=== PATIENT | male | born 1970 | race Caucasian/White ===

== ENCOUNTER 2016-11-26 15:00 | Inpatient (IN) | payer BC ==
[~2016-11-26] VITALS: Ht 177.8 cm; Wt 94.3 kg
[2016-11-26 17:05] VITALS: BP 121/79
--- OUTSIDE RECORDS SUMMARY | 2016-11-26 17:17 | XMS REPORT | Continuity of Care Document ---
Author Author [facility] Organization [facility] Address Unknown Phone Unavailable Care Team Providers Care Produce Sorter Name Role Phone JAILYN (GWENDOLYN), LIZZY Henley PCP Insurance Providers Payer Name Policy Number Subscriber Name Relationship [facility] [id number] Yennifer Bradshaw 01 Problems No known problems or medical conditions. Medications No known medications. Social History Social History Problem Response Recorded Date/Time Recent Foreign Travel No 02/21/2015 9:52am Hospital Discharge Instructions No hospital discharge instructions. Plan of Care No plan of care. Functional Status No functional status results. Allergies, Adverse Reactions, Alerts No known allergies. Immunizations No immunization records. Vital Signs No known vital signs results. Results No known relevant diagnostic tests, laboratory data and/or discharge summary. Procedures No known history of procedures. Encounters Encounter Location Date/Time Discharged Recurring [facility] 03/24/15 11:15am
[2016-11-26] MEDS ORDERED: BACLOFEN 10 MG (LIORESAL) TAB PO PRN (17:30)
[2016-11-26] MEDS ORDERED: inSUlin ASPART (NovoLOG) 1 UNIT/0.01 ML (CHARGE PER UNIT) SC SCH (18:15)
[2016-11-26] MEDS: doxAzosin 2 MG (CARDURA) TAB PO SCH (18:23)
[2016-11-26] MEDS: AMOXICILLIN 500 MG (POLYMOX) CAP PO SCH (18:23)
[2016-11-26] MEDS ORDERED: inSUlin ASPART (NovoLOG) 1 UNIT/0.01 ML (CHARGE PER UNIT) SC ONE (18:30)
[2016-11-26] MEDS: inSUlin DETERMIR 1 UNIT/0.01 ML (LEVEMIR) CHARGE PER UNIT SQ SCH (20:43)
[2016-11-26] MEDS: RIVAROXABAN 20 MG TABLET (XARELTO) PO SCH (20:43)
[2016-11-26] MEDS: CARVEDILOL 6.25 MG (COREG) TAB PO SCH (20:43)
[2016-11-27 05:17] VITALS: BP 111/78
[2016-11-27 05:52] LABS: BASOPHILS % (AUTO) 0 % (0-10); EOSINOPHILS # (AUTO) 0.2 10^3/uL (0.0-0.3); EOSINOPHILS % (AUTO) 4 % (0-10); LYMPHOCYTES # (AUTO) 2.2 X 10^3 (1.0-4.0); LYMPHOCYTES % (AUTO) 39 % (12-44); MEAN CORPUSCULAR HEMOGLOBIN 28 PG (25-34); MEAN CORPUSCULAR HGB CONC 33 G/DL (32-36); MEAN CORPUSCULAR VOLUME 84 FL (80-99); MEAN PLATELET VOLUME 10.5 FL (7.4-10.4); MONOCYTES # (AUTO) 0.6 X 10^3 (0.0-1.0); MONOCYTES % (AUTO) 10 % (0-12); NEUTROPHILS # (AUTO) 2.7 X 10^3 (1.8-7.8); NEUTROPHILS % (AUTO) 47 % (42-75); PLATELET COUNT 173 10^3/uL (130-400); RED BLOOD COUNT 4.98 10^6/uL (4.35-5.85); RED CELL DISTRIBUTION WIDTH 12.8 % (10.0-14.5); WHITE BLOOD COUNT 5.8 10^3/uL (4.3-11.0)
[2016-11-27] MEDS: AMOXICILLIN 500 MG (POLYMOX) CAP PO SCH ×2 (06:14→17:49)
[2016-11-27 06:17] LABS: ALANINE AMINOTRANSFERASE 43 U/L (0-55); ALBUMIN 3.5 G/DL (3.2-4.5); ANION GAP 10 MMOL/L (5-14); ASPARTATE AMINO TRANSFERASE 42 U/L (5-34); BILIRUBIN,TOTAL 0.4 MG/DL (0.1-1.0); BLOOD UREA NITROGEN 13 MG/DL (7-18); BUN/CREATININE RATIO 15; CARBON DIOXIDE 24 MMOL/L (21-32); CHLORIDE 105 MMOL/L (98-107); CREATININE SERUM 0.85 MG/DL (0.60-1.30); GFR ESTIMATED > 60; GLUCOSE 104 MG/DL (70-105); POTASSIUM 4.1 MMOL/L (3.6-5.0); SODIUM 139 MMOL/L (135-145); TOTAL PROTEIN 6.6 G/DL (6.4-8.2)
[2016-11-27] MEDS: ATORVASTATIN 40 MG (LIPITOR) TABLET PO SCH (07:16)
[2016-11-27] MEDS: MODAFINIL 100 MG TAB (PROVIGIL) NON-FORMULARY PO SCH (07:16)
[2016-11-27] MEDS: CARVEDILOL 6.25 MG (COREG) TAB PO SCH ×2 (08:37→20:12)
[2016-11-27] MEDS: VITAMIN D3 5,000 UNITS (CHOLECALCIFEROL ) CAPSULE PO SCH (08:37)
[2016-11-27] MEDS: ASPIRIN 325 MG (5 GR) TABLET PO SCH (08:38)
--- NOTE | 2016-11-27 08:40 | Consultation ---
History of Present Illness History of Present Illness Patient Consulted On(nikki/time) 11/27/16 08:34 Date of Admission History of Present Illness patient has weakness. Patient has multiple sclerosis for 25 years. Patient has a PEG tube which he uses for water. Patient has history of diabetes mellitus type II, hypertension, hyperlipidemia, obstructive sleep apnea, and ischemic stroke with residual right hemiplegia. Patient not using walker due to the previous stroke. Patient uses a cane. Patient at home wasn't toilet and try to get up and fell. Patient has a UTI but does have a catheter in Allergies and Home Medications Allergies Coded Allergies: Sulfa (Sulfonamide Antibiotics) (Verified Allergy, Unknown, 11/26/16) Past [id number]-[id number]-[id number] Hx Patient Social History Alcohol Use: Denies Use Recreational Drug Use: No Smoking Status: Former Smoker Recent Foreign Travel: No Contact w/Someone Who Travel: No Recent Infectious Disease Expo: No Recent Hopitalizations: Yes (WEAKNESS UTI MASTERS ) Physical Abuse Screen: No Sexual Abuse: No Immunizations Up To Date Date of Pneumonia Vaccine: Jul 23, 2016 Date of Influenza Vaccine: Aug 21, 2016 Seasonal Allergies Seasonal Allergies: No Surgeries Surgeries: Gallbladder Respiratory Respiratory Disorders: Sleep Apnea Genitourinary Genitourinary Disorders: Kidney Stones Gastrointestinal Gastrointestinal Disorders: Gall Bladder Disease Psychosocial Behavioral Health Disorders: Anxiety, Depression Family Medical History Family Medial History: Diabetes mellitus 19 FATHER FH: stroke 19 MOTHER, Onset:49 (BRAIN STEM STROKE) Hypertension 19 FATHER Review of Systems-General Constitutional: malaise weakness other (right sided stroke) EENTM: no symptoms reported Respiratory: no symptoms reported Cardiovascular: no symptoms reported Gastrointestinal: other (PEG tube for fluid to avoid dehydration) Genitourinary: other (has catheter in UTI) Musculoskeletal: other (foot drop on right, bases of both feet) Physical Exam-General Problems Physical Exam Vital Signs Vital Sign - Last 12Hours 11/26/16 17:05 Temp 97.8 Pulse 69 Resp 20 B/P 121/79 Pulse Ox 97 O2 Delivery Room Air Capillary Refill : General Appearance: WD/WN no apparent distress Eyes: Bilateral Eye Normal Inspection HEENT: normal ENT inspection Neck: full range of motion Respiratory: chest non-tender lungs clear normal breath sounds no respiratory distress no accessory muscle use Cardiovascular: regular rate, rhythm no murmur Gastrointestinal: non tender soft other (PEG tube) Assessment/Plan Assessment/Plan Admission Diagnosis/Plan weakness. Multiple sclerosis. Diabetes. Hypertension. Hyperlipidemia. Catheter associated UTI. Obstructive sleep apnea. Right hemiplegia. Right foot drop. History of depression. History of right lower extremity DVT Clinical Quality Measures DVT/VTE Risk/Contraindication: Risk Factor Score Per Nursin RFS Level Per Nursing on Admit: 1=Low/No VTE PPX TRENT CURRIE DO Nov 27, 2016 08:40
--- NOTE | 2016-11-27 09:29 | Physical Therapy Evaluation ---
PT Evaluation-General Medical Diagnosis Admission Date Nov 26, 2016 at 17:11 Medical Diagnosis: weakness, UTI Onset Date: Nov 26, 2016 Therapy Diagnosis Therapy Diagnosis: impaired mobility, strength, endurance, balance Height/Weight Height (Feet): 5 Height (Inches): 10.00 Weight (Pounds): 205 Weight (Ounces): 0.0 Precautions Precautions/Isolations: Fall Prevention, Standard Precautions Referral Physician: Jaspal Reason for Referral: Evaluation/Treatment Medical History Pertinent Medical History: CVA, DM, HTN Additional Medical History MS, hyperlipidemia, sleep apnea, right hemiparesis from previous CVA, anxiety, depression, gall bladder disease Current History patient fell off of the toilet at home, has a catheter associated UTI Reviewed History: Yes Social History Home: Single Level Current Living Status: Spouse Entry Into Home: Level Entry Prior/Core FIM Prior Level of Function Functional [place] Measure 0=Not Assessed/NA 4=Minimal Assistance 1=Total Assistance 5=Supervision or Setup 2=Maximal Assistance 6=Modified [place] 3=Moderate Assistance 7=Complete [place] Bed Mobility: 6 Transfers (B,C,W/C) (FIM): 6 Gait: 6 Patient uses bilateral AFO's and a quad cane, he also has a scooter. PT Evaluation-Current Subjective Patient in bed pre tx, agrees to PT, pleasant and cooperative. Patient has no complaints of pain. Pt/Family Goals to be independent at home Objective Patient Orientation: Normal For Age Attachments: PEG Tube ROM/Strength ROM Lower Extremities WNL Strenght Lower Extremities right lower extremity (hip flexion 3/5, knee flexion 1/5, knee extension 2/5, dorsiflexion 0/5), left lower extremity (hip flexion 4/5, knee flexion 4/5, knee extension 4/5, dorsiflexion 0/5) Integumentary/Posture Bladder Incontinence: Amezquita Cath Neuromuscular (Tone, Coordination, Reflexes) increased tone in right lower extremity, decreased coordination both lower extremities worse on the right Sensory Vision: Functional Hearing: Functional Sensation Right Lower Extremit: Impaired Sensation Left Lower Extremity: Impaired Sensation Lower Extremities no light touch sensation in right lower extremity, he does have light touch sensation in left leg but he states it is not what it used to be Transfers Functional [place] Measure 0=Not Assessed/NA 4=Minimal Assistance 1=Total Assistance 5=Supervision or Setup 2=Maximal Assistance 6=Modified [place] 3=Moderate Assistance 7=Complete IndependenceIRFPAI Quality Coding Scale 6 Independent with activity with or without an assistive device 5 Patient requires set up or clean up by helper. Patient completes activity by themselves 4 Supervision or touching assist (CGA). [place] provide cues , steadying assist 3 The helper provides less than half the effort to complete the activity 2 The helper provides more than half the effort to complete the activity 1 Dependent. The helper does all the effort to complete an activity 7 Patient refused to complete or attempt activity 9 The patient did not perform the activity before the current illness or injury 88 Not attempted due to Medical conditions or safety concerns Transfers (B, C, W/C) (FIM): 4 Scootin Rollin Roll Left to Right (QC): 4 Supine to/from Sit: 5 Sit to/from Stand: 4 bed t/f WC(FIM only if WC use): 4 Sit to Lying (QC): 4 Lying to Sitting/Side of Bed(Q: 4 Sit to Stand (QC): 4 Chair/Qwx-ck-Ajjsp Xfer(QC): 4 Car Transfer (QC): 88 bed mobility SBA, sit to stand and transfers CGA Gait Does the Patient Walk?: Yes Mode of Locomotion: Walk Anticipated Mode of Locomotion: Walk Gait (FIM): 2 Walk 10 feet (QC): 4 Walk 50 ft with 2 Turns(QC): 4 Walk 150 ft (QC): 88 Walking 10ft/uneven surface-QC: 4 Distance: 120'x2 Gait Level of Assist: 4 Gait Persons Needed: 1 Gait Assistive Device: Cane Large Base Quad Comments/Gait Description Patient was able to ambulate 120' with a quad cane and bilateral AFO's with CGA and no LOB (including 10' over an uneven surface like carpet and 50' with at least 2 turns of 90 degrees). Very slow ambulation, hyperextension of right knee but not forcefully. Wheelchair Training Does the Pt Use a Wheelchair?: No Stairs Stairs (FIM): 1 #of Steps: 1 Level of Assist: 4 1 Step (curb) (QC): 3 4 Steps (QC): 88 Assistive Device: Cane 12 Steps (QC): 88 Patient was able to go up and down 1 step using a quad cane and bilateral AFO's with min assist. Balance Sitting Static: Normal Sitting Dynamic: Normal Standing Static: Poor Standing Dynamic: Poor Picking up an Object (QC): 88 Assessment/Needs Patient has impaired strength, endurance, balance, and right hemiplegia post CVA and UTI. Rehab Potential: Fair PT Short Term Goals Short Term Goals Time Frame: Dec 04, 2016 Transfers (B,C,W/C) (FIM): 5 Gait (FIM): 4 Gait Distance Comment: 200' Gait Level of Assist: 4 Gait Assistive Device: Cane Large Base Quad PT Lens Dotter Goals Lens Dotter Goals PT Halfway Goals Time Frame: Dec 18, 2016 Transfers (B,C,W/C) (FIM): 6 Sit to Lying (QC): 6 Lying-Sitting on Side/Bed(QC): 6 Sit to Stand (QC): 6 Rollin Roll Left to Right (QC): 6 Chair/Ugk-mx-Zofpp Xfer(QC): 6 Car Transfer (QC): 4 Does the Patient Walk: Yes Gait (FIM): 5 Distance: 250' Walk 10 feet (QC): 4 Walk 10ft-Uneven Surface(QC): 4 Walk 50ft with 2 Turns (QC): 4 Walk 150 ft (QC): 4 Gait Level of Assist: 5 Gait Assistive Device: Cane Large Base Quad Does the Pt use WC or Scooter?: No Stairs (FIM): 2 # of Steps: 4 1 Step (curb) (QC): 4 4 Steps (QC): 4 12 Steps (QC): 88 Stairs Level Of Assist: 4 Picking up an Object (QC): 88 PT Plan Problem List Problem List: Activity Tolerance, Functional Strength, Safety, Balance, Gait, Transfer, Bed Mobility, ROM Treatment/Plan Treatment Plan: Continue Plan of Care Treatment Plan: Bed Mobility, Education, Functional Activity Ta, Functional Strength, Group Therapy, Gait, Safety, Therapeutic Exercise, Transfers Treatment Duration: Dec 18, 2016 # of days/week 5-6 Visits Per Week: 10-11 Minutes/Day (M-F): 60-90 Minutes/Day (Sat/Juares): 15-30 Pt/Family Agrees w/Plan: Yes Safety Risks/Education Patient Education: Gait Training, Transfer Techniques, Steps, Safety Issues Teaching Recipient: Patient Teaching Methods: Demonstration, Discussion Response to Teaching: Reinforcement Needed Discharge Recommendations Plan Patient will perform bed mobility and transfer training, balance and endurance training, functional strengthening, stair training, gait training, education, to improve functional mobility and independence at home. Therapy D/C Recommendations: Home w/ Family Support Time/GCodes Time In: 845 Time Out: 930 Total Billed Treatment Time: 45 Total Billed Treatment 1 visit EVM 15 min GT 15 min FA 15 min MIKA MERCHANT PT Nov 27, 2016 09:29
--- NOTE | 2016-11-27 11:30 | HISTORY AND PHYSICAL ---
DATE OF ADMISSION: 11/26/2016 CHIEF COMPLAINT: Increased weakness, difficulty with transfers. HISTORY OF PRESENT ILLNESS: The patient is a 46-year-old male with history of type 2 diabetes mellitus, hypertension, hyperlipidemia, obstructive sleep apnea and ischemic stroke with residual right hemiplegia as well as MS for which he receives treatment in [place]. He has an indwelling Amezquita catheter for bladder management. He developed a UTI suspected to be catheter associated UTI. This was treated on an inpatient basis at [facility] being admitted there on 11/20 with associated his fever. The patient was treated medically stabilized but left with decline of functional dependence prior to his prior level of function. He lives with his in [place], [place]. His PCP Irineo Archuleta, DO in [place]. Currently he requires assistance for his ADLs and mobility skills, bladder, and is chronically with indwelling Amezquita catheter. His glucometer reading on evening of admission is 108.He is set up for UB dressing and Min assist for lower Body dressing He is Modified Independent for eating He is Min assist for transfers and gait with [facility]. The patient reports that he had been Modified Independent for Mobility and adls prior to this including donning and doffing his afos His wifw works as a para at a school across the street from their home,He has a scooter and various other DME at home. PAST MEDICAL HISTORY: Essentially as per above. PAST SURGICAL HISTORY: He has had a PEG tube placed in the past but does not currently utilize ALLERGIES: SULFA FAMILY HISTORY: Noncontributory. SOCIAL HISTORY: Lives with his at home in [place], [place]. REVIEW OF SYSTEMS: Ten-point review of systems significant for right-sided weakness. He is right-handed but uses his left hand for normal routine. MEDICATIONS: 1. ASA 325 mg p.o. q.d. 2. Vitamin D3 5000 units p.o. daily. 3. Lipitor 40 mg p.o. daily. 4. Provigil 200 mg p.o. daily. 5. Levemir insulin 10 units subcutaneous at bedtime. 6. Coreg 6.25 mg p.o. b.i.d. 7. NovoLog insulin with meals subcutaneous. 8. Polymox 1000 mg p.o. b.i.d. 9. Celexa 20 mg p.o. daily. 10. Xarelto 20 mg p.o. daily. 11. Cardura 1 mg p.o. each evening. 12. Baclofen 10 mg p.o. t.i.d. p.r.n. muscle spasms. PHYSICAL EXAMINATION: Significant for a male appearing his stated age, alert and oriented in no acute distress. VITAL SIGNS: Blood pressure 121/79. O2 sat 97% on room air, respirations 20, pulse 69. He is afebrile. HEENT: Vision, speech, hearing, grossly intact. No oral lesion is noted. NECK: Supple without mass. HEART: Regular rhythm. LUNGS: Clear. ABDOMEN: Soft, nontender. Bowel sounds present. : Indwelling Amezquita catheter to dependent drainage. EXTREMITIES: No lower edema. No calf tenderness. MUSCULOSKELETAL: He has functional passive range of motion of all 4 extremities. NEUROLOGIC: He has a right hemiparesis.RT HIP Flex 3/5 knee Flex 1/5, knee ext 2 /5 Ankle dorsiflexion 0/5 Left HIP flex 4/5 knee flex and ext 4/5 Ankle dorsiflex 0/5 Left UE Strength 4+/5 RT Upper ext no functional movement other then shoulder flex to 30-40- degrees.. Sensation is grossly intact to touch other than being decreased to light touch both feet R>L and some numbness / tingling reported in left hand. Cognition appears grossly intact. His speech is somewhat slowed. IMPRESSION: 1. Ambulatory dysfunction secondary to exacerbation of MS due to underlying catheter induced UTI, treated. 2. Late effects of left MCA stroke with right hemiparesis. 3. Obstructive sleep apnea on CPAP. 4. Insulin-dependent diabetes mellitus. 5. Hyperlipidemia, on statin. 6. Chronic indwelling Amezquita catheter. PLAN: The patient will have a comprehensive program of inpatient rehabilitation with the goal of maximizing level of functional independence prior to discharge home with spouse. The patient will have PT/OT 90 minutes per day, each discipline, 5 days a week, when not to be seen by speech therapy, for gait, strengthening, conditioning, balance, ADLs, any patient/family/caregiver training necessary, any adaptive equipment and training necessary, energy conservation, rehabilitation nursing assist with bowel, bladder, Amezquita catheter care, skin care, medication administration, pain management. phlebotomy services representative to assist with discharge planning, community reentry. He will follow-up with team and patient and family regarding exactly what his prior level of function was at home. His stay here has been approved by [employer], [employer] his commercial insurance. We will consult Dr. Arvizu for medical management for this out of town patient. Accu-Cheks q.i.d. before meals and at bedtime, adjust medications as necessary. Therapy with cardiac and fall precautions. Check CBC and CMP in a.m. ESTIMATED LENGTH OF STAY: Two weeks. PROGNOSIS: Rehab prognosis appears good for goal of discharging home with prior level of function with family and home health care. DIET: Carb consistent. CODE STATUS: Full code. POST ADMISSION PHYSICAL ASSESSMENT: The preadmission screen agrees with the post admission assessment that the patient is a good candidate for inpatient rehabilitation. He appears to be well motivated to participate in 3 hours of therapy a day and should be able to will tolerate 3 hours of therapy a day. He should benefit from the 3 hours of therapy a day. He has a reasonable discharge plan, reasonable discharge rehabilitation goals and a supportive family. He has various comorbidities that need to be closely monitored with medications and treatments adjusted on a daily basis as needed. These include ongoing treatment of his UTI and spasticity pain associated with MS and prior stroke. Barriers to discharge for this patient who had been at a higher level of function prior to this is for him to return to that prior level of function so as to lessen the burden of the caregivers. Risks for this patient include: 1. Worsening MS. 2. Recurrent stroke. 3. Fall. 4. Fracture. 5. DVT. 6. Pulmonary embolism. 7. Urinary retention. 8. Recurrent UTI. 9. Respiratory infection. 10. Aspiration. 11. Poorly controlled pain and blood pressure. We will utilize SCDs for DVT prophylaxis. Job ID: [id number] Dictated Date: 11/26/2016 19:45:01 Pole Shaver Helper Date: 11/27/2016 11:08:08/vj ANNE
--- NOTE | 2016-11-27 13:26 | PM & R (SOAP) Progress Note ---
Subjective Subjective/Events-last exam Patient was seen in his room this afternoon Patient min assist for transfers.Appreciate labs and DR Arvizu and PT note Patient has bilateral afos he obtained from [facility] for treatment of footdrop. Objective Exam Last Set of Vital Signs Vital Signs Date Time Temp Pulse Resp B/P Pulse Ox O2 Delivery O2 Flow Rate FiO2 11/27/16 09:00 Room Air 11/27/16 05:17 97.6 68 18 111/78 98 Capillary Refill : I&O Bad tableGeneral: Alert, Oriented X3, Cooperative, No Acute Distress HEENT: Atraumatic, PERRLA, EOMI, Mucous Memb Moist/[place] Neck: Supple, No JVD Lungs: Clear to Auscultation Heart: Regular Rate Abdomen: Normal Bowel Sounds, Soft, No Tenderness Extremities: No Edema Neuro: Other (RT Hemipararis with bilateral footdrop) Results Lab Laboratory Tests 11/26/16 18:15: Glucometer 108 11/26/16 20:50: Glucometer 149H 11/27/16 04:38: Glucometer 106 11/27/16 05:10: Alanine Aminotransferase (ALT/SGPT) 43, Albumin 3.5, Alkaline Phosphatase 93, Anion Gap 10, Aspartate Amino Transf (AST/SGOT) 42H, BUN/Creatinine Ratio 15, Basophils # (Auto) 0.0, Basophils (%) (Auto) 0, Blood Urea Nitrogen 13, Calcium Level 9.0, Carbon Dioxide Level 24, Chloride Level 105, Creatinine 0.85, Eosinophils # (Auto) 0.2, Eosinophils (%) (Auto) 4, Estimat Glomerular Filtration Rate > 60, Glucose Level 104, Hematocrit 42, Hemoglobin 13.8, Lymphocytes # (Auto) 2.2, Lymphocytes (%) (Auto) 39, Mean Corpuscular Hemoglobin 28, Mean Corpuscular Hemoglobin Concent 33, Mean Corpuscular Volume 84, Mean Platelet Volume 10.5H, Monocytes # (Auto) 0.6, Monocytes (%) (Auto) 10 , Neutrophils # (Auto) 2.7, Neutrophils (%) (Auto) 47, Platelet Count 173, Potassium Level 4.1, Red Blood Count 4.98, Red Cell Distribution Width 12.8, Sodium Level 139, Total Bilirubin 0.4, Total Protein 6.6, White Blood Count 5.8 11/27/16 11:04: Glucometer 94 Assessment/Plan Assessment General debil secondary to catheter related UTI Treated Exacerbation of MS with RT HP and weakness LLE as well with bilateral footdrop has Bilateral afos Late effects of stroke DM controlled HTN controlled Plan Continue Pt OT and ST Assessment pending Team Conference tomorrow KELLY PAZ MD Nov 27, 2016 13:26
--- NOTE | 2016-11-27 14:15 | Physical Therapy Daily Note ---
PT Daily Note-Current Subjective Patient in recliner pre tx, agrees to PT, no complaints of pain, pleasant and cooperative. Appearance Patient in recliner post tx, has nurse call, phone, tray, all needs met. Mental Status Patient Orientation: Normal For Age Attachments: PEG Tube Transfers Functional [place] Measure 0=Not Assessed/NA 4=Minimal Assistance 1=Total Assistance 5=Supervision or Setup 2=Maximal Assistance 6=Modified [place] 3=Moderate Assistance 7=Complete IndependenceIRFPAI Quality Coding Scale 6 Independent with activity with or without an assistive device 5 Patient requires set up or clean up by helper. Patient completes activity by themselves 4 Supervision or touching assist (CGA). [place] provide cues , steadying assist 3 The helper provides less than half the effort to complete the activity 2 The helper provides more than half the effort to complete the activity 1 Dependent. The helper does all the effort to complete an activity 7 Patient refused to complete or attempt activity 9 The patient did not perform the activity before the current illness or injury 88 Not attempted due to Medical conditions or safety concerns Transfers (B, C, W/C) (FIM): 4 Sit to/from Stand: 4 Patient needed min assist to stand from a low surface. Gait Training Gait (FIM): 4 Distance: 150'x2 Gait Level of Assist: 4 Gait Persons Needed: 1 Gait Assistive Device: Cane Large Base Quad CGA, very slow, moments of unsteadiness but no LOB Exercises NuStep Minutes: 15 NuStep Workload: 5 Treatments transfers, ambulation, functional strengthening Assessment Current Status: Fair Progress improving endurance PT Short Term Goals Short Term Goals Time Frame: Dec 04, 2016 Transfers (B,C,W/C) (FIM): 5 Gait (FIM): 4 Gait Distance Comment: 200' Gait Level of Assist: 4 Gait Assistive Device: Cane Large Base Quad PT [facility] Goals Log Preparer Goals PT Log Preparer Goals Time Frame: Dec 18, 2016 Transfers (B,C,W/C) (FIM): 6 Sit to Lying (QC): 6 Lying-Sitting on Side/Bed(QC): 6 Sit to Stand (QC): 6 Rollin Roll Left to Right (QC): 6 Chair/All-rh-Zvfxy Xfer(QC): 6 Car Transfer (QC): 4 Does the Patient Walk: Yes Gait (FIM): 5 Distance: 250' Walk 10 feet (QC): 4 Walk 10ft-Uneven Surface(QC): 4 Walk 50ft with 2 Turns (QC): 4 Walk 150 ft (QC): 4 Gait Level of Assist: 5 Gait Assistive Device: Cane Large Base Quad Does the Pt use WC or Scooter?: No Stairs (FIM): 2 # of Steps: 4 1 Step (curb) (QC): 4 4 Steps (QC): 4 12 Steps (QC): 88 Stairs Level Of Assist: 4 Picking up an Object (QC): 88 PT Plan Problem List Problem List: Activity Tolerance, Functional Strength, Safety, Balance, Gait, Transfer, Bed Mobility, ROM Treatment/Plan Treatment Plan: Continue Plan of Care Treatment Plan: Bed Mobility, Education, Functional Activity Ta, Functional Strength, Group Therapy, Gait, Safety, Therapeutic Exercise, Transfers Treatment Duration: Dec 18, 2016 Visits Per Week: 10-11 Minutes/Day (M-F): 60-90 Minutes/Day (Sat/Juares): 15-30 Safety Risks/Education Patient Education: Gait Training, Transfer Techniques, Safety Issues Teaching Recipient: Patient Teaching Methods: Demonstration, Discussion Response to Teaching: Reinforcement Needed Time/GCodes Time In: 1330 Time Out: 1415 Total Billed Treatment Time: 45 Total Billed Treatment 1 visit GT 30 min EX 15 min MIKA MERCHANT PT Nov 27, 2016 14:15
--- NOTE | 2016-11-27 14:36 | Occupational Therapy Eval ---
OT Evaluation-General/PLF Medical Diagnosis Admission Date Nov 26, 2016 at 17:11 Medical Diagnosis: weakness, UTI Onset Date: Nov 20, 2016 Therapy Diagnosis Therapy Diagnosis: weakness, decr self care, decr functional mobility, decr activity tolerance Height/Weight Height (Feet): 5 Height (Inches): 10.00 Weight (Pounds): 205 Weight (Ounces): 0.0 Precautions Precautions/Isolations: Fall Prevention, Standard Precautions Safety Interventions: Bed Exit Alarm Referral Physician: Jaspal Referral Reason: Evaluation/Treatment Medical History Pertinent Medical History: CVA, DM, HTN Additional Medical History Has had MS 25 years, hyperlipidemia, sleep apnea, right hemiparesis from previous CVAs 2013, 2015, anxiety, depression, gall bladder disease Current History patient fell off of the toilet at home, has a catheter associated UTI Reviewed History: Yes Social History Home: Apartment Current Living Status: Spouse Entry Into Home: Level Entry ADL-Prior Level of Function ADL PLOF Comments Pt reported that he has been able to manage all of his basic self care activities, including doffing and donning bilat AFOs, since his strokes. 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 He has worked collecting money at school games and hasn't driven for about 3 years. DME/Equipment: Bath Bench, Grab Bars, Shower, Shower Hose Hood Maker, Tall Toilet Occupation: disabled Drive Self: No OT Current Status Subjective Pt seen in room, up in recliner, agreeable to OT. Pain 0/10 Appearance Alert, cooperative Mental Status/Objective Patient Orientation: Person, Place, Situation Attachments: Watts Catheter (indwelling), PEG Tube Current Glasses/Contacts: Yes (reading) Hearing Aids: No Dentures/Partials: No Hand Dominance: Right Upper Extremity ROM L UE WFL. R UE has shoulder fle to about 30-40 degrees. No other functional movement noted in R UE Upper Extremity Sensation Pt reported no numbness/tingling L hand Upper Extremity Strength L UE 4+/5 ADL-Treatment ADL-Current All ADLs took longer than usual due to modified techniques and being done with 1 hand Functional [place] Measure 0=Not Assessed/NA 4=Minimal Assistance 1=Total Assistance 5=Supervision or Setup 2=Maximal Assistance 6=Modified [place] 3=Moderate Assistance 7=Complete IndependenceIRFPAI Quality Coding Scale 6 Independent with activity with or without an assistive device 5 Patient requires set up or clean up by helper. Patient completes activity by themselves 4 Supervision or touching assist (CGA). [place] provide cues , steadying assist 3 The helper provides less than half the effort to complete the activity 2 The helper provides more than half the effort to complete the activity 1 Dependent. The helper does all the effort to complete an activity 7 Patient refused to complete or attempt activity 9 The patient did not perform the activity before the current illness or injury 88 Not attempted due to Medical conditions or safety concerns Eating (FIM): 6 (Pt opened packages, cut up food. Took longer than usual time) Eating (QC): 6 Bathing (FIM): 4 (CGA to stand to wash bottom. pt leans forward, resting head on wall for balance. Washed and dried other parts, using shower bench, grab bars , hand held shower) Shower/Bathe Self (QC): 4 Upper Body Dressing (FIM): 5 (Doffed and donned shirt, using modified techniques) Upper Body Dressing (QC): 5 (setup) Lower Body Dressing (FIM): 4 (Just a little help pulling pants up on R side. Doffed and donned shoes, AFOs, socks, pants, Depends. Threaded watts bag himself (uses teeth to hold bag at times). ) Lower Body Dressing (QC): 3 On/Off Footwear (QC): 5 (setup) Toileting (FIM): 4 (CGA when standing to manage clothing, just a little help pulling pants up over R hip. BSC over toilet, grab bars) Toileting Hygiene (QC): 4 (CGA) Toilet/Commode Transfer (FIM): 4 (CGA, BSC over toilet, grab bars, quad cane) Toilet Transfer (QC): 4 Shower Transfer (FIM): 4 (CGA, shower bench, grab bars) Other Treatments Pt left up in recliner, all needs met. Education OT Patient Education: Modified ADL techniques, Progress toward Goal/Update tx plan, Purpose of tx/functional activities, Rehab process, Safety issues, Transfer techniques Teaching Recipient: Patient Teaching Methods: Discussion Response to Teaching: Verbalize Understanding, Return Demonstration OT Short Term Goals Short Term Goals Time Frame: Dec 04, 2016 Bathing(FIM): 5 Toilet/Commode Transfer(FIM): 5 Shower Transfer(FIM): 5 Additional Short Term Goals: 2-Verbalize Understanding, 3-ImproveStrength/Ta 1=Demonstrate adherence to instructed precautions during ADL tasks. 2=Patient will verbalize/demonstrate understanding of assistive devices/ modifications for ADL. 3=Patient will improve strength/tolerance for activity to enable patient to perform ADL's. OT Investor Relations Associate Goals Investor Relations Associate Goals Time Frame: Dec 18, 2016 Eating (FIM): 6 Eating (QC): 6 Oral Hygiene (QC): 6 Grooming(FIM): 6 Bathing(FIM): 6 Shower/Bathe Self (QC): 6 Upper Body Dressing(FIM): 6 Upper Body Dressing (QC): 6 Lower Body Dressing(FIM): 6 Lower Body Dressing (QC): 6 On/Off Footwear (QC): 6 Toileting(FIM): 6 Toileting Hygiene (QC): 6 Toilet/Commode Transfer(FIM): 6 Toilet/Commode Transfer (QC): 6 Shower Transfer(FIM): 6 Additional Goals: 2-Verbalize Understanding, 3-ImproveStrength/Ta 1=Demonstrate adherence to instructed precautions during ADL tasks. 2=Patient will verbalize/demonstrate understanding of assistive devices/ modifications for ADL. 3=Patient will improve strength/tolerance for activity to enable patient to perform ADL's. OT Education/Plan Problem List/Assessment Assessment: Decreased Activ Tolerance, Decreased UE Strength, Dependent Transfers, Impaired Funct Balance, Impaired Self-Care Skills, Restricted Funct UE ROM Pt would benefit from skilled OT to increase his independence in basic self care to allow him to safely return home to live with and to decrease caregiver burden Discharge Recommendations Plan/Recommendations: Continue POC Barriers to Progress decreased activity tolerance Treatment Plan/Plan of Care Treatment,Training & Education: Yes Patient would benefit from OT for education, treatment and training to promote independence in ADL's, mobility, safety and/or upper extremity function for ADL' s. Plan of Care: ADL Retraining, Functional Mobility, Group Exercise/Act as Ind ( education, exercise, activity tolerance, functional activities) Treatment Duration: Dec 18, 2016 # of days/week 5-6 Visits Per Week: 10-11 Minutes/Day (M-F): 75-90 Minutes/Day (Sat/Juares): PRN Agreement: Yes Rehab Potential: Fair Time/GCodes Start Time: 11:00 Stop Time: 12:30 Total Time Billed (hr/min): 75 Billed Treatment Time Break 1115 to 1130 for pt to finish eating Visit, 15 minutes evaluation moderate complexity, 60 minutes ADL MAEGAN MATA OT Nov 27, 2016 14:36
--- NOTE | 2016-11-27 15:03 | Occupational Ther Daily Note ---
OT Current Status-Daily Note Subjective Pt seen in room, up in recliner, agreeable to OT. No pain mentioned Appearance Alert, cooperative Mental Status/Objective Functional [place] Measure 0=Not Assessed/NA 4=Minimal Assistance 1=Total Assistance 5=Supervision or Setup 2=Maximal Assistance 6=Modified [place] 3=Moderate Assistance 7=Complete [place] ADL-Treatment Discussed tx plan, with patient agreement. Functional [place] Measure 0=Not Assessed/NA 4=Minimal Assistance 1=Total Assistance 5=Supervision or Setup 2=Maximal Assistance 6=Modified [place] 3=Moderate Assistance 7=Complete IndependenceIRFPAI Quality Coding Scale 6 Independent with activity with or without an assistive device 5 Patient requires set up or clean up by helper. Patient completes activity by themselves 4 Supervision or touching assist (CGA). [place] provide cues , steadying assist 3 The helper provides less than half the effort to complete the activity 2 The helper provides more than half the effort to complete the activity 1 Dependent. The helper does all the effort to complete an activity 7 Patient refused to complete or attempt activity 9 The patient did not perform the activity before the current illness or injury 88 Not attempted due to Medical conditions or safety concerns Grooming (FIM): 5 (setup to brush teeth, wash face and hands, do hair. Did not shave) Oral Hygiene (QC): 5 Other Treatment Pt left up in recliner, all needs met. Education OT Patient Education: Purpose of tx/functional activities (tx plan) Teaching Recipient: Patient Teaching Methods: Discussion Response to Teaching: Verbalize Understanding OT Short Term Goals Short Term Goals Time Frame: Dec 04, 2016 Bathing(FIM): 5 Toilet/Commode Transfer(FIM): 5 Shower Transfer(FIM): 5 Additional Short Term Goals: 2-Verbalize Understanding, 3-ImproveStrength/Ta 1=Demonstrate adherence to instructed precautions during ADL tasks. 2=Patient will verbalize/demonstrate understanding of assistive devices/ modifications for ADL. 3=Patient will improve strength/tolerance for activity to enable patient to perform ADL's. OT Alining Inspector Goals Alining Inspector Goals Time Frame: Dec 18, 2016 Eating (FIM): 6 Eating (QC): 6 Oral Hygiene (QC): 6 Grooming(FIM): 6 Bathing(FIM): 6 Shower/Bathe Self (QC): 6 Upper Body Dressing(FIM): 6 Upper Body Dressing (QC): 6 Lower Body Dressing(FIM): 6 Lower Body Dressing (QC): 6 On/Off Footwear (QC): 6 Toileting(FIM): 6 Toileting Hygiene (QC): 6 Toilet/Commode Transfer(FIM): 6 Toilet/Commode Transfer (QC): 6 Shower Transfer(FIM): 6 Additional Goals: 2-Verbalize Understanding, 3-ImproveStrength/Ta 1=Demonstrate adherence to instructed precautions during ADL tasks. 2=Patient will verbalize/demonstrate understanding of assistive devices/ modifications for ADL. 3=Patient will improve strength/tolerance for activity to enable patient to perform ADL's. OT Education/Plan Problem List/Assessment Pt would benefit from skilled OT to increase his independence in basic self care to allow him to safely return home to live with and to decrease caregiver burden Discharge Recommendations Plan/Recommendations: Continue POC Treatment Plan/Plan of Care Patient would benefit from OT for education, treatment and training to promote independence in ADL's, mobility, safety and/or upper extremity function for ADL' s. Plan of Care: ADL Retraining, Functional Mobility, Group Exercise/Act as Ind ( education, exercise, activity tolerance, functional activities) Treatment Duration: Dec 18, 2016 Visits Per Week: 10-11 Minutes/Day (M-F): 75-90 Minutes/Day (Sat/Juares): PRN Agreement: Yes Rehab Potential: Fair Time/GCodes Start Time: 13:00 Stop Time: 13:15 Total Time Billed (hr/min): 15 Billed Treatment Time visit, 15 minutes ADL MAEGAN MATA OT Nov 27, 2016 15:03
--- NOTE | 2016-11-27 15:05 | ST Cognitive Linguistic Eval ---
Speech Evaluation-General Medical Diagnosis Debility, UTI Onset Date: Nov 26, 2016 Therapy Diagnosis Therapy Diagnosis: Questionable Cognitive Impairment Precautions Precautions/Isolations: Fall Prevention, Standard Precautions Referral Referring Physician: Dr. Kit Shay Reason for Referral: Evaluation/Treatment Cognitive Screen Medical History Pertinent Medical History: CVA, DM, HTN Reviewed History: Yes Social History Current Living Status: Spouse Speech PLF-Current Status Prior Level of Function The patient denied challenges with cognitive, speech, or language prior to or throughout the hospitalization. The patient was previously known to the clinician through outpatient dysphagia services. The patient participated in skilled swallowing therapy to improve use of compensatory strategies, as well as, strength base of tongue, laryngeal and pharyngeal musculature. The patient reported he is currently consuming a regular diet with thin liquids, however, prefers soft consistencies for increased ease with mastication. The patient denied signs/symptoms of aspiration or laryngeal penetration (thoroughly discussed with patient) and verbalized/demonstrated swallowing strategies to the clinician (chin tuck to left, small bites and sips, upright for PO). Additionally, the patient denied any recent diagnosis of pneumonia or chest infections. Subjective The patient was recently admitted to [facility] with a diagnosis of an UTI. The patient greeted the clinician appropriately and agreed to participate in the cognitive screen on this date. Language Eval: Auditory Comprehends Simple Yes/No Ques: Functional Indent/Objects Multiple [place]: Functional Ident/Pics in Multiple [place]: Functional Follows 1-Step Commands: Functional Follows Complex Directions: Functional Follows General Conversations: Functional Language Eval: Verbal Language Completes Spontaneous Greeting: Functional Produces Auto, Serial Info: Functional Imitates Simple Words/Phrases: Functional Word Finding: Functional Requests Basic Needs: Functional Expresses Complex Ideas: Functional Cognitive Patient Orientation The patient was oriented to place, person, date, day of week, and year. Objective Cognitive Domain Attention: WNL Memory: Mild (The patient recalled three of five single words following a five minute delay.) Problem Solving: Functional Objective Formal/Standardized Tests [place] Cognitive Assessment (MoCA) Version One Impression The patient demonstrated a result of +20/22 on the MoCA correlating to cognitive linguistic skills within normal limits. Communication/Social Cognition Comprehension: 6 Expression: 6 Social Interaction: 6 Problem Solvin Memory: 5 Speech Patient Assess Expression of Ideas/Wants: Expression (4) Understanding [place] Content: Understands (4) Brief Interview-Mental Status: Yes Repetition of Three Words: Three (3) Temporal Orientation: Year: Correct (3) Temporal Orientation: Month: Accurate within 5 days(2) Temporal Orientation: Day: Correct (1) Recall : Wear to say "Sock": Yes,after cueing (1) Recall : Color: Yes, no cue required (2) Recall : Bed: Yes,after cueing (1) Speech-Plan Treatment Plan Speech Therapy Treatment Plan: Discontinue ST (Eval, only.) Eval, only. Rehab Potential: Fair Safety Risks/Education Teaching Recipient: Patient Teaching Methods: Discussion Response to Teaching: Verbalize Understanding Education Topics Provided: Plan of Care Time Speech Therapy Time In: 10:30 Speech Therapy Time Out: 10:45 Total Billed Time: 15 Billed Treatment Time 1, ELIDIA MEDINA Nov 27, 2016 15:05
[2016-11-27] MEDS: doxAzosin 2 MG (CARDURA) TAB PO SCH (17:49)
[2016-11-27] MEDS: RIVAROXABAN 20 MG TABLET (XARELTO) PO SCH (17:50)
[2016-11-27 18:08] VITALS: BP 110/75
[2016-11-27 20:00] VITALS: BP 113/71
[2016-11-27] MEDS: inSUlin DETERMIR 1 UNIT/0.01 ML (LEVEMIR) CHARGE PER UNIT SQ SCH (20:12)
[2016-11-27] MEDS: inSUlin (REGULAR) HUMAN 1 UNIT/0.01 ML (CHARGE PER UNIT) SC SCH (20:16)
[2016-11-28 06:00] VITALS: BP 115/70
[2016-11-28] MEDS: inSUlin (REGULAR) HUMAN 1 UNIT/0.01 ML (CHARGE PER UNIT) SC SCH ×4 (06:00→20:27)
[2016-11-28] MEDS: MODAFINIL 100 MG TAB (PROVIGIL) NON-FORMULARY PO SCH (06:39)
[2016-11-28] MEDS: AMOXICILLIN 500 MG (POLYMOX) CAP PO SCH ×2 (06:39→18:05)
[2016-11-28] MEDS: ATORVASTATIN 40 MG (LIPITOR) TABLET PO SCH (06:39)
--- NOTE | 2016-11-28 08:17 | Progress Note (SOAP) ---
Subjective Subjective/Events-last exam multiple sclerosis. Weakness. Unsteady gait. Patient had unsteady gait when he walks today. Patient feels he is improving Objective Exam Vital Signs Date Time Temp Pulse Resp B/P Pulse Ox O2 Delivery O2 Flow Rate FiO2 11/28/16 06:00 97.0 76 18 115/70 96 Room Air 11/27/16 21:00 Room Air 11/27/16 20:00 71 113/71 11/27/16 18:08 97.3 82 16 110/75 95 11/27/16 09:00 Room Air I & O 11/28/16 07:00 Intake Total 1880 ml Output Total 2175 ml Balance -295 ml Capillary Refill : General Appearance: No Apparent Distress WD/WN HEENT: Normal ENT Inspection Neck: Normal Inspection Respiratory: Chest Non Tender Lungs Clear Normal Breath Sounds No Accessory Muscle Use No Respiratory Distress Cardiovascular: Regular Rate, Rhythm No Murmur Gastrointestinal: non tender soft Results Lab Laboratory Tests 11/27/16 11:04: Glucometer 94 11/27/16 16:01: Glucometer 136H 11/27/16 20:14: Glucometer 159H 11/28/16 05:50: Glucometer 101 Assessment/Plan Assessment/Plan Assess & Plan/Chief Complaint weakness. Multiple sclerosis. Diabetes. Hypertension. Hyperlipidemia. Catheter associated UTI. Obstructive sleep apnea. Right hemiplegia. Right foot drop. History of depression. History of right lower extremity DVT. . Weakness. Multiple sclerosis. Diabetes. Hypertension. Hyperlipidemia. UTI infection. History of obstructive sleep apnea. Patient physical therapy and does not have a steady gait yet. Patient needs more work. Diagnosis/Problems: Clinical Quality Measures DVT/VTE Risk/Contraindication: Risk Factor Score Per Nursin RFS Level Per Nursing on Admit: 1=Low/No VTE PPX TRENT CURRIE DO Nov 28, 2016 08:17
[2016-11-28] MEDS ORDERED: RIVA20TA PO (09:31)
[2016-11-28] MEDS ORDERED: DOXA1TAB PO (09:31)
[2016-11-28] MEDS ORDERED: MODA200T39 PO (09:31)
[2016-11-28] MEDS ORDERED: AMOX500C2 PO (09:31)
[2016-11-28] MEDS ORDERED: ATOR40TA70 PO (09:31)
[2016-11-28] MEDS ORDERED: INSU100I14 SC (09:31)
[2016-11-28] MEDS ORDERED: CHOL5000 PO (09:31)
[2016-11-28] MEDS ORDERED: ASPI325T32 PO (09:31)
[2016-11-28] MEDS ORDERED: INSU300I SC (09:31)
[2016-11-28] MEDS ORDERED: CARV6.252 PO (09:31)
[2016-11-28] MEDS ORDERED: ESCI20TA45 PO (09:31)
[2016-11-28] MEDS ORDERED: BACL10TA PO (09:31)
[2016-11-28] MEDS ORDERED: INTE44PE SC (09:31)
--- NOTE | 2016-11-28 09:31 | Physical Therapy Daily Note ---
PT Daily Note-Current Subjective Pt sitting at table in [facility] upon arrival. Pt reports feeling good today. Pt agrees to PT. Pain Numeric Pain Scale: 6 Location: Right, Dorsal Location Body Site: Thigh Pain Description: Tightness Comment: Pt reports tightness in hamstrings during Ex but relief when not Ex. Mental Status Patient Orientation: Person, Place, Time, Situation Attachments: PEG Tube, Amezquita Catheter Transfers Functional [place] Measure 0=Not Assessed/NA 4=Minimal Assistance 1=Total Assistance 5=Supervision or Setup 2=Maximal Assistance 6=Modified [place] 3=Moderate Assistance 7=Complete IndependenceIRFPAI Quality Coding Scale 6 Independent with activity with or without an assistive device 5 Patient requires set up or clean up by helper. Patient completes activity by themselves 4 Supervision or touching assist (CGA). [place] provide cues , steadying assist 3 The helper provides less than half the effort to complete the activity 2 The helper provides more than half the effort to complete the activity 1 Dependent. The helper does all the effort to complete an activity 7 Patient refused to complete or attempt activity 9 The patient did not perform the activity before the current illness or injury 88 Not attempted due to Medical conditions or safety concerns Transfers (B, C, W/C) (FIM): 4 Scootin Sit to/from Stand: 4 Sit to Stand (QC): 4 Weight Bearing Weight Bearing Restriction: Full Weight Bearing Location Restriction: LE Bilateral Gait Training Does the Patient Walk?: Yes Gait (FIM): 4 Distance (FIM): 3=150 ft Distance: 150 X 2 Walk 10 feet (QC): 4 Walk 50 ft with 2 Turns(QC): 4 Gait Level of Assist: 4 Gait Persons Needed: 1 Gait Assistive Device: Cane Large Base Quad Pt walks with slight hip circumduction due to weakness in RLE. Pt's gait is slow but steady. Pt has one instance of LOB but able to self correct. Exercises Seated Therapy Exercises: Ankle pumps, Long arc quads, Hip flexion, Kicking activity Seated Reps: 15 NuStep Minutes: 15 NuStep Workload: 5 Treatments Pt transfers for chair to standing using Quad cane at Min A. Pt then ambulates using Quad cane at CGA for steadiness in Therapy [employer]. Pt takes rest break after approx. 150' of walking then resumes for additional 150' and rests again. Pt then ambulates to Therapy [employer] to use NuStep. Pt transfers at [facility]. Pt uses NuStep for 15m at Workload 5. Pt takes short rest then transfers from NuStep to standing to chair at [facility]. Pt completes seated Ex before transferring to standing to walk back to room. Pt transfers from standing to recliner at [facility]. Pt rests with feet up and all needs met at end of tx. Assessment Current Status: Good Progress Pt is improving with independence of transfers and mobility. PT Short Term Goals Short Term Goals Time Frame: Dec 04, 2016 Gait (FIM): 4 Gait Distance Comment: 200' Gait Level of Assist: 4 Gait Assistive Device: Cane Large Base Quad PT Retirement Goals Tufting Machine Operator Single Needle Goals PT Retirement Goals Time Frame: Dec 18, 2016 Transfers (B,C,W/C) (FIM): 6 Sit to Lying (QC): 6 Lying-Sitting on Side/Bed(QC): 6 Sit to Stand (QC): 6 Rollin Roll Left to Right (QC): 6 Chair/[id number]-Bvcfa Xfer(QC): 6 Car Transfer (QC): 4 Does the Patient Walk: Yes Gait (FIM): 5 Distance: 250' Walk 10 feet (QC): 4 Walk 10ft-Uneven Surface(QC): 4 Walk 50ft with 2 Turns (QC): 4 Walk 150 ft (QC): 4 Gait Level of Assist: 5 Gait Assistive Device: Cane Large Base Quad Does the Pt use WC or Scooter?: No Stairs (FIM): 2 # of Steps: 4 1 Step (curb) (QC): 4 4 Steps (QC): 4 12 Steps (QC): 88 Stairs Level Of Assist: 4 Picking up an Object (QC): 88 PT Plan Problem List Problem List: Functional Strength, Safety, Balance, Gait, Transfer Treatment/Plan Treatment Plan: Continue Plan of Care Treatment Plan: Bed Mobility, Education, Functional Activity Ta, Functional Strength, Group Therapy, Gait, Safety, Therapeutic Exercise, Transfers Treatment Duration: Dec 18, 2016 Visits Per Week: 10-11 Minutes/Day (M-F): 60-90 Minutes/Day (Sat/Juares): 15-30 Safety Risks/Education Patient Education: Gait Training, Transfer Techniques, Correct Positioning, Safety Issues Teaching Recipient: Patient Teaching Methods: Discussion Response to Teaching: Verbalize Understanding Time/GCodes Time In: 810 Time Out: 915 Total Billed Treatment Time: 65 Total Billed Treatment visit, EX X2 (30m), GT (15m) & FA (15m) CHELLY DOMINGUEZ BRIQUETTE MACHINE OPERATOR HELPER Nov 28, 2016 09:31
[2016-11-28] MEDS: VITAMIN D3 5,000 UNITS (CHOLECALCIFEROL ) CAPSULE PO SCH (09:43)
[2016-11-28] MEDS: CARVEDILOL 6.25 MG (COREG) TAB PO SCH ×2 (09:43→20:27)
[2016-11-28] MEDS: ASPIRIN 325 MG (5 GR) TABLET PO SCH (09:43)
--- NOTE | 2016-11-28 11:26 | PM & R (SOAP) Progress Note ---
Subjective Subjective/Events-last exam Patient was seen on unit this AM Patient Min assist for transfers [place] Objective Exam Last Set of Vital Signs Vital Signs Date Time Temp Pulse Resp B/P Pulse Ox O2 Delivery O2 Flow Rate FiO2 11/28/16 06:00 97.0 76 18 115/70 96 Room Air Capillary Refill : I&O Intake and Output 11/28/16 00:00 Intake Total 1260 ml Output Total 875 ml Balance 385 ml Intake Oral 940 ml Other 320 ml Output Urine Total 875 ml # Bowel Movements 2 General: Alert, Oriented X3, Cooperative, No Acute Distress HEENT: Atraumatic, PERRLA, EOMI, Mucous Memb Moist/[place] Neck: Supple, No JVD Lungs: Clear to Auscultation Heart: Regular Rate Abdomen: Normal Bowel Sounds, Soft, No Tenderness Extremities: No Edema Neuro: Other (RT Hemipararis with bilateral footdrop) Results Lab Laboratory Tests 11/26/16 18:15: Glucometer 108 11/26/16 20:50: Glucometer 149H 11/27/16 04:38: Glucometer 106 11/27/16 05:10: Alanine Aminotransferase (ALT/SGPT) 43, Albumin 3.5, Alkaline Phosphatase 93, Anion Gap 10, Aspartate Amino Transf (AST/SGOT) 42H, BUN/Creatinine Ratio 15, Basophils # (Auto) 0.0, Basophils (%) (Auto) 0, Blood Urea Nitrogen 13, Calcium Level 9.0, Carbon Dioxide Level 24, Chloride Level 105, Creatinine 0.85, Eosinophils # (Auto) 0.2, Eosinophils (%) (Auto) 4, Estimat Glomerular Filtration Rate > 60, Glucose Level 104, Hematocrit 42, Hemoglobin 13.8, Lymphocytes # (Auto) 2.2, Lymphocytes (%) (Auto) 39, Mean Corpuscular Hemoglobin 28, Mean Corpuscular Hemoglobin Concent 33, Mean Corpuscular Volume 84, Mean Platelet Volume 10.5H, Monocytes # (Auto) 0.6, Monocytes (%) (Auto) 10 , Neutrophils # (Auto) 2.7, Neutrophils (%) (Auto) 47, Platelet Count 173, Potassium Level 4.1, Red Blood Count 4.98, Red Cell Distribution Width 12.8, Sodium Level 139, Total Bilirubin 0.4, Total Protein 6.6, White Blood Count 5.8 11/27/16 11:04: Glucometer 94 11/27/16 16:01: Glucometer 136H 11/27/16 20:14: Glucometer 159H 11/28/16 05:50: Glucometer 101 11/28/16 11:05: Glucometer 107 Assessment/Plan Assessment General debil secondary to catheter related UTI Treated Exacerbation of MS with RT HP and weakness LLE as well with bilateral footdrop has Bilateral afos Late effects of stroke DM controlled HTN controlled Plan Continue Pt OT Team Conference later today See report for full functional update and POC and KELLY VIEIRA MD Nov 28, 2016 11:26
--- NOTE | 2016-11-28 14:42 | Therapy Group Daily Note ---
Therapy Daily Group Note Patient Education Topic Home Safety Exercises LE Seated Exercise, UE Exercise Other/Notes Pt was an active participant in OT/PT group. For socialization and memory, he shared information on his first vehicle with the group. He demonstrated good critical thinking skills and problem-solving with a group word activity. He did seated UE and LE exercises, modifying them as needed for R hemiplegia from previous CVA and contributed to discussion/education on home safety communication devices. He walked back to his room and was left up in his recliner, all needs met. Start Time: 13:00 Stop Time: 14:15 Total Billed Treatment Time: 75 Total Billed Treatment visit, 75 minutes group MAEGAN MATA OT Nov 28, 2016 14:42
--- NOTE | 2016-11-28 14:58 | Occupational Ther Daily Note ---
OT Current Status-Daily Note Subjective Pt seen in room, up in recliner, agreeable to OT. he did not want to shower or change clothes but did want to shave. No pain mentioned. Appearance Alert, cooperative. Speech sometimes slurred and hard to understand Mental Status/Objective Functional [place] Measure 0=Not Assessed/NA 4=Minimal Assistance 1=Total Assistance 5=Supervision or Setup 2=Maximal Assistance 6=Modified [place] 3=Moderate Assistance 7=Complete [place] ADL-Treatment Functional [place] Measure 0=Not Assessed/NA 4=Minimal Assistance 1=Total Assistance 5=Supervision or Setup 2=Maximal Assistance 6=Modified [place] 3=Moderate Assistance 7=Complete IndependenceIRFPAI Quality Coding Scale 6 Independent with activity with or without an assistive device 5 Patient requires set up or clean up by helper. Patient completes activity by themselves 4 Supervision or touching assist (CGA). [place] provide cues , steadying assist 3 The helper provides less than half the effort to complete the activity 2 The helper provides more than half the effort to complete the activity 1 Dependent. The helper does all the effort to complete an activity 7 Patient refused to complete or attempt activity 9 The patient did not perform the activity before the current illness or injury 88 Not attempted due to Medical conditions or safety concerns Grooming (FIM): 5 (Shaved, brushed teeth, washed face and hands at sink, seated on chair with arms. Pt needed min assist and several attempts to get out of chair. Walked min assist to bathroom) Toileting (FIM): 4 (CGA when standing to pull pants up and down, manage hygiene. Hangs watts on pants pocket. BSC over toilet, grab bars, quad cane) Transfers (B, C, W/C) (FIM): 4 (Walked min assist to bathroom and to commons area. needed min assist and several attempts to get out of chair with arms) Toilet/Commode Transfer (FIM): 4 (Min assist walking to BSC over toilet and CGA assist to sit. Min assist to get off BSC, several attempts, using grab bars , quad cane) Other Treatment Pt walked slowly and deliberately with min assist and quad cane to [facility] [place] , leaning to L on quad cane to unweight R leg. He did several different activities with 2# weight on his L arm, strengthening it for transfers and walking components of ADLs. He was able to follow instructions and needed minimal cues for the activities. he walked back to room, min assist, quad cane, and was left up in recliner, all needs met. OT Short Term Goals Short Term Goals Time Frame: Dec 04, 2016 Bathing(FIM): 5 Toilet/Commode Transfer(FIM): 5 Shower Transfer(FIM): 5 Additional Short Term Goals: 2-Verbalize Understanding, 3-ImproveStrength/Ta 1=Demonstrate adherence to instructed precautions during ADL tasks. 2=Patient will verbalize/demonstrate understanding of assistive devices/ modifications for ADL. 3=Patient will improve strength/tolerance for activity to enable patient to perform ADL's. OT Assistant Spa Director Goals Assistant Spa Director Goals Time Frame: Dec 18, 2016 Eating (FIM): 6 Eating (QC): 6 Oral Hygiene (QC): 6 Grooming(FIM): 6 Bathing(FIM): 6 Shower/Bathe Self (QC): 6 Upper Body Dressing(FIM): 6 Upper Body Dressing (QC): 6 Lower Body Dressing(FIM): 6 Lower Body Dressing (QC): 6 On/Off Footwear (QC): 6 Toileting(FIM): 6 Toileting Hygiene (QC): 6 Toilet/Commode Transfer(FIM): 6 Toilet/Commode Transfer (QC): 6 Shower Transfer(FIM): 6 Additional Goals: 2-Verbalize Understanding, 3-ImproveStrength/Ta 1=Demonstrate adherence to instructed precautions during ADL tasks. 2=Patient will verbalize/demonstrate understanding of assistive devices/ modifications for ADL. 3=Patient will improve strength/tolerance for activity to enable patient to perform ADL's. OT Education/Plan Problem List/Assessment Pt would benefit from skilled OT to increase his independence in basic self care to allow him to safely return home to live with and to decrease caregiver burden Discharge Recommendations Plan/Recommendations: Continue POC Treatment Plan/Plan of Care Patient would benefit from OT for education, treatment and training to promote independence in ADL's, mobility, safety and/or upper extremity function for ADL' s. Plan of Care: ADL Retraining, Functional Mobility, Group Exercise/Act as Ind ( education, exercise, activity tolerance, functional activities) Treatment Duration: Dec 18, 2016 Visits Per Week: 10-11 Minutes/Day (M-F): 75-90 Minutes/Day (Sat/Juares): PRN Agreement: Yes Rehab Potential: Fair Time/GCodes Start Time: 09:30 Stop Time: 10:30 Total Time Billed (hr/min): 60 Billed Treatment Time visit, 20 minutes ADL, 40 minutes exercise MAEGAN MATA OT Nov 28, 2016 14:58
[2016-11-28] MEDS: doxAzosin 2 MG (CARDURA) TAB PO SCH (18:05)
[2016-11-28] MEDS: RIVAROXABAN 20 MG TABLET (XARELTO) PO SCH (18:05)
[2016-11-28] MEDS ORDERED: PATIENT MAY USE OWN MED,SINGLE MED PO SCH (18:45)
[2016-11-28 19:00] VITALS: BP 123/80
[2016-11-28] MEDS ORDERED: NON-FORMULARY MEDICATION 1 EA EA INJ SCH (20:00)
[2016-11-28] MEDS: inSUlin DETERMIR 1 UNIT/0.01 ML (LEVEMIR) CHARGE PER UNIT SQ SCH (20:28)
[2016-11-28] MEDS: INTERFERON BETA 44 MCG SQ SCH (20:29)
[2016-11-29 04:45] VITALS: BP 111/72
[2016-11-29] MEDS: inSUlin (REGULAR) HUMAN 1 UNIT/0.01 ML (CHARGE PER UNIT) SC SCH ×4 (06:00→20:31)
[2016-11-29] MEDS: MODAFINIL 100 MG TAB (PROVIGIL) NON-FORMULARY PO SCH (06:32)
[2016-11-29] MEDS: AMOXICILLIN 500 MG (POLYMOX) CAP PO SCH ×2 (06:32→17:38)
[2016-11-29] MEDS: ATORVASTATIN 40 MG (LIPITOR) TABLET PO SCH (06:32)
[2016-11-29] MEDS: CARVEDILOL 6.25 MG (COREG) TAB PO SCH ×2 (08:11→20:26)
[2016-11-29] MEDS: ASPIRIN 325 MG (5 GR) TABLET PO SCH (08:12)
[2016-11-29] MEDS: VITAMIN D3 5,000 UNITS (CHOLECALCIFEROL ) CAPSULE PO SCH (08:12)
--- NOTE | 2016-11-29 08:28 | Progress Note (SOAP) ---
Subjective Subjective/Events-last exam patient still unsteady with his balance. Patient needs improvement clear. Patient getting around slowly area Patient has multiple sclerosis Objective Exam Vital Signs Date Time Temp Pulse Resp B/P Pulse Ox O2 Delivery O2 Flow Rate FiO2 11/29/16 04:45 96.7 81 20 111/72 97 Room Air 11/28/16 20:00 Room Air 11/28/16 19:00 97.4 77 18 123/80 98 Room Air 11/28/16 08:35 Room Air I & O 11/29/16 07:00 Intake Total 1530 ml Output Total 2300 ml Balance -770 ml Capillary Refill : General Appearance: No Apparent Distress WD/WN HEENT: Normal ENT Inspection Neck: Normal Inspection Respiratory: Chest Non Tender Lungs Clear Normal Breath Sounds No Accessory Muscle Use No Respiratory Distress Cardiovascular: Regular Rate, Rhythm No Murmur Gastrointestinal: non tender soft Results Lab Laboratory Tests 11/28/16 11:05: Glucometer 107 11/28/16 16:06: Glucometer 141H 11/28/16 20:22: Glucometer 156H 11/29/16 05:08: Glucometer 101 Assessment/Plan Assessment/Plan Assess & Plan/Chief Complaint weakness. Multiple sclerosis. Diabetes. Hypertension. Hyperlipidemia. Catheter associated UTI. Obstructive sleep apnea. Right hemiplegia. Right foot drop. History of depression. History of right lower extremity DVT. . Weakness. Multiple sclerosis. Diabetes. Hypertension. Hyperlipidemia. UTI infection. History of obstructive sleep apnea. Patient physical therapy and does not have a steady gait yet. Patient needs more work. . . 11/29/16. Multiple sclerosis. Weakness. Unsteady gait. Diabetes. Hypertension. Hyperlipidemia. Patient has unsteady gait but able to correct himself without help Diagnosis/Problems: Clinical Quality Measures DVT/VTE Risk/Contraindication: Risk Factor Score Per Nursin RFS Level Per Nursing on Admit: 1=Low/No VTE PPX TRENT CURRIE DO Nov 29, 2016 08:27
--- NOTE | 2016-11-29 10:25 | Physical Therapy Daily Note ---
PT Daily Note-Current Subjective Pt is sitting in recliner in room upon arrival. Pt reports feeling a little more stiff upon getting up this morning. Pt agreed to PT. Pain Numeric Pain Scale: 0-No Pain Location: No Pain Reported Mental Status Patient Orientation: Person, Place, Time, Situation Attachments: PEG Tube, Amezquita Catheter Transfers Functional [place] Measure 0=Not Assessed/NA 4=Minimal Assistance 1=Total Assistance 5=Supervision or Setup 2=Maximal Assistance 6=Modified [place] 3=Moderate Assistance 7=Complete IndependenceIRFPAI Quality Coding Scale 6 Independent with activity with or without an assistive device 5 Patient requires set up or clean up by helper. Patient completes activity by themselves 4 Supervision or touching assist ([facility]). [place] provide cues , steadying assist 3 The helper provides less than half the effort to complete the activity 2 The helper provides more than half the effort to complete the activity 1 Dependent. The helper does all the effort to complete an activity 7 Patient refused to complete or attempt activity 9 The patient did not perform the activity before the current illness or injury 88 Not attempted due to Medical conditions or safety concerns Scootin Sit to/from Stand: 4 Sit to Stand (QC): 4 Weight Bearing Weight Bearing Restriction: Full Weight Bearing Location Restriction: LE Bilateral Gait Training Does the Patient Walk?: Yes Gait (FIM): 4 Distance (FIM): 3=150 ft Distance: 150 + 233=142' Walk 10 feet (QC): 4 Walk 50 ft with 2 Turns(QC): 4 Walk 150 ft (QC): 4 Gait Level of Assist: 4 Gait Persons Needed: 1 Gait Assistive Device: Cane Large Base Quad Pt is a little more unsteady this morning with ambulation. A couple of events of LOB but was able to self correct, one time PT had to support pt due to LOB. Pt walks with slow jarad. Exercises Seated Therapy Exercises: Ankle pumps, Long arc quads, Hip flexion, Kicking activity [facility] Minutes: 15 [facility] Workload: 6 Treatments Pt transferred from recliner to standing using Quad cane at [facility]. Pt ambulated in Therapy Commons using Quad cane at [facility]. Pt took short break before ambulating to Therapy Gym. Pt transferred to [facility] for use of 15m at Workload 6. Pt then took short rest break before transferring from [facility] to chair for seated Ex. Pt then ambulated in hallway before returning to room to rest in recliner due to fatigue. Pt transferred from standing to sitting in recliner at [facility]. Pt was left with all needs met at end of tx. Assessment Current Status: Good Progress Pt is increasing independence in transfers and mobility although pt was more unsteady today. PT Short Term Goals Short Term Goals Time Frame: Dec 04, 2016 Gait (FIM): 4 Gait Distance Comment: 200' Gait Level of Assist: 4 Gait Assistive Device: Cane Large Base Quad PT Borderer Goals Borderer Goals PT Borderer Goals Time Frame: Dec 18, 2016 Transfers (B,C,W/C) (FIM): 6 Sit to Lying (QC): 6 Lying-Sitting on Side/Bed(QC): 6 Sit to Stand (QC): 6 Rollin Roll Left to Right (QC): 6 Chair/Nfi-xa-Ljbhj Xfer(QC): 6 Car Transfer (QC): 4 Does the Patient Walk: Yes Gait (FIM): 5 Distance: 250' Walk 10 feet (QC): 4 Walk 10ft-Uneven Surface(QC): 4 Walk 50ft with 2 Turns (QC): 4 Walk 150 ft (QC): 4 Gait Level of Assist: 5 Gait Assistive Device: Cane Large Base Quad Does the Pt use WC or Scooter?: No Stairs (FIM): 2 # of Steps: 4 1 Step (curb) (QC): 4 4 Steps (QC): 4 12 Steps (QC): 88 Stairs Level Of Assist: 4 Picking up an Object (QC): 88 PT Plan Problem List Problem List: Activity Tolerance, Functional Strength, Safety, Balance, Gait, Transfer Treatment/Plan Treatment Plan: Continue Plan of Care Treatment Plan: Bed Mobility, Education, Functional Activity Ta, Functional Strength, Group Therapy, Gait, Safety, Therapeutic Exercise, Transfers Treatment Duration: Dec 18, 2016 Visits Per Week: 10-11 Minutes/Day (M-F): 60-90 Minutes/Day (Sat/Juares): 15-30 Safety Risks/Education Patient Education: Gait Training, Transfer Techniques, Correct Positioning, Safety Issues Teaching Recipient: Patient Teaching Methods: Discussion Response to Teaching: Verbalize Understanding Time/GCodes Time In: 815 Time Out: 915 Total Billed Treatment Time: 60 Total Billed Treatment visit, GT X2 (30m) & EX X2 (30m) CHELLY DOMINGUEZ FURNACE CHARGER Nov 29, 2016 10:25
--- NOTE | 2016-11-29 10:39 | Occupational Ther Daily Note ---
OT Current Status-Daily Note Subjective Pt seen in room, up in recliner, agreeable to OT. No pain mentioned Appearance Alert, cooperative Mental Status/Objective Functional [place] Measure 0=Not Assessed/NA 4=Minimal Assistance 1=Total Assistance 5=Supervision or Setup 2=Maximal Assistance 6=Modified [place] 3=Moderate Assistance 7=Complete [place] ADL-Treatment Pt clarified that he does not walk around much in his apartment - he uses his scooter to move form place to place. Functional [place] Measure 0=Not Assessed/NA 4=Minimal Assistance 1=Total Assistance 5=Supervision or Setup 2=Maximal Assistance 6=Modified [place] 3=Moderate Assistance 7=Complete IndependenceIRFPAI Quality Coding Scale 6 Independent with activity with or without an assistive device 5 Patient requires set up or clean up by helper. Patient completes activity by themselves 4 Supervision or touching assist (CGA). [place] provide cues , steadying assist 3 The helper provides less than half the effort to complete the activity 2 The helper provides more than half the effort to complete the activity 1 Dependent. The helper does all the effort to complete an activity 7 Patient refused to complete or attempt activity 9 The patient did not perform the activity before the current illness or injury 88 Not attempted due to Medical conditions or safety concerns Bathing (FIM): 4 (CGA when standing to wash bottom. leans to rest head against wall for balance. Washed and dried all parts. Turned water on and off himself and retrieved towel from bar. Shower bench, grab bar, hand held shower) Upper Body (FIM): 6 (Doffed and donned t shirt without assistance, seated) Lower Body Dressing (FIM): 4 (CGA when standing to pull pants up. Pt doffed and donned all other pieces of clothing and braces by himself, seated on shower bench, with grab bar. Threaded watts through pants legs himself) On/Off Footwear (QC): 6 Toileting (FIM): 4 (CGA when standing to pull pnats up and down, resting head against wall for balance. BSC over toilet, grab bars) Toilet/Commode Transfer (FIM): 4 (CGA, BSC over toilet, grab bar. Needed several trials to get get up off chair) Shower Transfer(FIM): 4 (CGA, shower bench, grab bars) Pt walked back to recliner, CGA, quad cane and was left up in recliner, all needs met. OT Short Term Goals Short Term Goals Time Frame: Dec 04, 2016 Bathing(FIM): 5 Toilet/Commode Transfer(FIM): 5 Shower Transfer(FIM): 5 Additional Short Term Goals: 2-Verbalize Understanding, 3-ImproveStrength/Ta 1=Demonstrate adherence to instructed precautions during ADL tasks. 2=Patient will verbalize/demonstrate understanding of assistive devices/ modifications for ADL. 3=Patient will improve strength/tolerance for activity to enable patient to perform ADL's. OT Retirement Goals Pediatric Neuropsychologist Goals Time Frame: Dec 18, 2016 Eating (FIM): 6 Eating (QC): 6 Groomin Oral Hygiene (QC): 6 Bathing(FIM): 6 Shower/Bathe Self (QC): 6 Upper Body Dressing(FIM): 6 Upper Body Dressing (QC): 6 Lower Body Dressing(FIM): 6 Lower Body Dressing (QC): 6 On/Off Footwear (QC): 6 Toileting(FIM): 6 Toileting Hygiene (QC): 6 Toilet/Commode Transfer(FIM): 6 Toilet/Commode Transfer (QC): 6 Shower Transfer(FIM): 6 Additional Goals: 2-Verbalize Understanding, 3-ImproveStrength/Ta 1=Demonstrate adherence to instructed precautions during ADL tasks. 2=Patient will verbalize/demonstrate understanding of assistive devices/ modifications for ADL. 3=Patient will improve strength/tolerance for activity to enable patient to perform ADL's. OT Education/Plan Problem List/Assessment Pt would benefit from skilled OT to increase his independence in basic self care to allow him to safely return home to live with and to decrease caregiver burden Discharge Recommendations Plan/Recommendations: Continue POC Treatment Plan/Plan of Care Patient would benefit from OT for education, treatment and training to promote independence in ADL's, mobility, safety and/or upper extremity function for ADL' s. Plan of Care: ADL Retraining, Functional Mobility, Group Exercise/Act as Ind ( education, exercise, activity tolerance, functional activities) Treatment Duration: Dec 18, 2016 Visits Per Week: 10-11 Minutes/Day (M-F): 75-90 Minutes/Day (Sat/Juares): PRN Agreement: Yes Rehab Potential: Fair Time/GCodes Start Time: 09:30 Stop Time: 10:30 Total Time Billed (hr/min): 60 Billed Treatment Time visit, 60 minutes MAEGAN MENDEZ OT Nov 29, 2016 10:39
--- NOTE | 2016-11-29 14:14 | Physical Therapy Daily Note ---
PT Daily Note-Current Subjective Pt was sitting in recliner upon arrival. Pt reports feeling a little fatigued this afternoon. Pt agrees to PT. Pain Numeric Pain Scale: 0-No Pain Location: No Pain Reported Mental Status Patient Orientation: Person, Place, Time, Situation Attachments: PEG Tube, Amezquita Catheter Transfers Functional [place] Measure 0=Not Assessed/NA 4=Minimal Assistance 1=Total Assistance 5=Supervision or Setup 2=Maximal Assistance 6=Modified [place] 3=Moderate Assistance 7=Complete IndependenceIRFPAI Quality Coding Scale 6 Independent with activity with or without an assistive device 5 Patient requires set up or clean up by helper. Patient completes activity by themselves 4 Supervision or touching assist ([facility]). [place] provide cues , steadying assist 3 The helper provides less than half the effort to complete the activity 2 The helper provides more than half the effort to complete the activity 1 Dependent. The helper does all the effort to complete an activity 7 Patient refused to complete or attempt activity 9 The patient did not perform the activity before the current illness or injury 88 Not attempted due to Medical conditions or safety concerns Transfers (B, C, W/C) (FIM): 4 Scootin Sit to/from Stand: 4 Sit to Stand (QC): 4 Weight Bearing Weight Bearing Restriction: Full Weight Bearing Location Restriction: LE Bilateral Gait Training Does the Patient Walk?: Yes Gait (FIM): 4 Distance (FIM): 3=150 ft Distance: 200 + 225= 425' Walk 10 feet (QC): 4 Walk 50 ft with 2 Turns(QC): 4 Walk 150 ft (QC): 4 Gait Level of Assist: 4 Gait Persons Needed: 1 Gait Assistive Device: Cane Large Base Quad Pt has several events of LOB due to fatigue. Pt is able to catch himself to self correct but more unsteady this afternoon and fatigued quicker than this morning. Pt walks with slow jarad and slight R hip circumduction due to weakness and inability to properly DF for foot clearance. Treatments Pt transferred from recliner to standing using Quad cane at [facility]. Pt ambulated in hallway using Quad cane at [facility]-Min A for support. Pt needed several rest breaks during GT due to fatigue. Pt ambulated to Therapy Gym at end of tx to rest in chair before beginning OT. Pt was left with all needs met. Assessment Current Status: Fair Progress Pt fatigued easier and had more events of LOB than this morning. Pt had increased need for rest breaks during tx. PT Short Term Goals Short Term Goals Time Frame: Dec 04, 2016 Gait (FIM): 4 Gait Distance Comment: 200' Gait Level of Assist: 4 Gait Assistive Device: Cane Large Base Quad PT Punching Machine Operator Goals [facility] Goals PT Punching Machine Operator Goals Time Frame: Dec 18, 2016 Transfers (B,C,W/C) (FIM): 6 Sit to Lying (QC): 6 Lying-Sitting on Side/Bed(QC): 6 Sit to Stand (QC): 6 Rollin Roll Left to Right (QC): 6 Chair/Xbb-st-Rdldr Xfer(QC): 6 Car Transfer (QC): 4 Does the Patient Walk: Yes Gait (FIM): 5 Distance: 250' Walk 10 feet (QC): 4 Walk 10ft-Uneven Surface(QC): 4 Walk 50ft with 2 Turns (QC): 4 Walk 150 ft (QC): 4 Gait Level of Assist: 5 Gait Assistive Device: Cane Large Base Quad Does the Pt use WC or Scooter?: No Stairs (FIM): 2 # of Steps: 4 1 Step (curb) (QC): 4 4 Steps (QC): 4 12 Steps (QC): 88 Stairs Level Of Assist: 4 Picking up an Object (QC): 88 PT Plan Problem List Problem List: Activity Tolerance, Functional Strength, Safety, Balance, Gait, Transfer Treatment/Plan Treatment Plan: Continue Plan of Care Treatment Plan: Bed Mobility, Education, Functional Activity Ta, Functional Strength, Group Therapy, Gait, Safety, Therapeutic Exercise, Transfers Treatment Duration: Dec 18, 2016 Visits Per Week: 10-11 Minutes/Day (M-F): 60-90 Minutes/Day (Sat/Juares): 15-30 Safety Risks/Education Patient Education: Gait Training, Transfer Techniques, Correct Positioning, Safety Issues Teaching Recipient: Patient Teaching Methods: Discussion Response to Teaching: Verbalize Understanding Time/GCodes Time In: 1300 Time Out: 1335 Total Billed Treatment Time: 35 Total Billed Treatment visit, GT X2 (35m) CHELLY DOMINGUEZ PTA Nov 29, 2016 14:14
--- NOTE | 2016-11-29 15:47 | Occupational Ther Daily Note ---
OT Current Status-Daily Note Subjective Pt seen in gym, after PT, agreeable to OT. No pain mentioned Appearance Alert, cooperative Mental Status/Objective Functional [place] Measure 0=Not Assessed/NA 4=Minimal Assistance 1=Total Assistance 5=Supervision or Setup 2=Maximal Assistance 6=Modified [place] 3=Moderate Assistance 7=Complete [place] ADL-Treatment Functional [place] Measure 0=Not Assessed/NA 4=Minimal Assistance 1=Total Assistance 5=Supervision or Setup 2=Maximal Assistance 6=Modified [place] 3=Moderate Assistance 7=Complete IndependenceIRFPAI Quality Coding Scale 6 Independent with activity with or without an assistive device 5 Patient requires set up or clean up by helper. Patient completes activity by themselves 4 Supervision or touching assist (CGA). [place] provide cues , steadying assist 3 The helper provides less than half the effort to complete the activity 2 The helper provides more than half the effort to complete the activity 1 Dependent. The helper does all the effort to complete an activity 7 Patient refused to complete or attempt activity 9 The patient did not perform the activity before the current illness or injury 88 Not attempted due to Medical conditions or safety concerns Other Treatment Pt stood at parallel bar for 1:20 and 1:15 while working on balance activity as needed for toileting and using L UE during activity. balance visibly declined with time. First time lost balance x2 but self-corrected, second time LOB x 2. Pt took brief recovery periods in between. He walked back to his room, demonstrating increased fatigue L UE, needing to stop about 1[address] sit to rest and 3/[address] to lean against wall. He also needed min assist instead of CGA and was a little more unsteady. pt left p in recliner, all needs met. OT Short Term Goals Short Term Goals Time Frame: Dec 04, 2016 Bathing(FIM): 5 Toilet/Commode Transfer(FIM): 5 Shower Transfer(FIM): 5 Additional Short Term Goals: 2-Verbalize Understanding, 3-ImproveStrength/Ta 1=Demonstrate adherence to instructed precautions during ADL tasks. 2=Patient will verbalize/demonstrate understanding of assistive devices/ modifications for ADL. 3=Patient will improve strength/tolerance for activity to enable patient to perform ADL's. OT Jewel Hole Driller Goals Mcfp Goals Time Frame: Dec 18, 2016 Eating (FIM): 6 Eating (QC): 6 Groomin Oral Hygiene (QC): 6 Bathing(FIM): 6 Shower/Bathe Self (QC): 6 Upper Body Dressing(FIM): 6 Upper Body Dressing (QC): 6 Lower Body Dressing(FIM): 6 Lower Body Dressing (QC): 6 On/Off Footwear (QC): 6 Toileting(FIM): 6 Toileting Hygiene (QC): 6 Toilet/Commode Transfer(FIM): 6 Toilet/Commode Transfer (QC): 6 Shower Transfer(FIM): 6 Additional Goals: 2-Verbalize Understanding, 3-ImproveStrength/Ta 1=Demonstrate adherence to instructed precautions during ADL tasks. 2=Patient will verbalize/demonstrate understanding of assistive devices/ modifications for ADL. 3=Patient will improve strength/tolerance for activity to enable patient to perform ADL's. OT Education/Plan Problem List/Assessment Pt would benefit from skilled OT to increase his independence in basic self care to allow him to safely return home to live with and to decrease caregiver burden Discharge Recommendations Plan/Recommendations: Continue POC Treatment Plan/Plan of Care Patient would benefit from OT for education, treatment and training to promote independence in ADL's, mobility, safety and/or upper extremity function for ADL' s. Plan of Care: ADL Retraining, Functional Mobility, Group Exercise/Act as Ind ( education, exercise, activity tolerance, functional activities) Treatment Duration: Dec 18, 2016 Visits Per Week: 10-11 Minutes/Day (M-F): 75-90 Minutes/Day (Sat/Juares): PRN Agreement: Yes Rehab Potential: Fair Time/GCodes Start Time: 13:35 Stop Time: 14:00 Total Time Billed (hr/min): 25 Billed Treatment Time visit, 25 minutes functional activities MAEGAN MATA OT Nov 29, 2016 15:47
--- NOTE | 2016-11-29 16:41 | PM & R (SOAP) Progress Note ---
Subjective Subjective/Events-last exam Patient was seen in his room this noonhour.Receiving his home interferon med three times a week-Dr French is his Neurologist in [place] Objective Exam Last Set of Vital Signs Vital Signs Date Time Temp Pulse Resp B/P Pulse Ox O2 Delivery O2 Flow Rate FiO2 11/29/16 08:24 Room Air 11/29/16 04:45 96.7 81 20 111/72 97 Capillary Refill : I&O Intake and Output 11/29/16 00:00 Intake Total 1910 ml Output Total 2900 ml Balance -990 ml Intake Oral 1550 ml Other 360 ml Output Urine Total 2900 ml General: Alert, Oriented X3, Cooperative, No Acute Distress HEENT: Atraumatic, PERRLA, EOMI, Mucous Memb Moist/[place]ck: Supple, No JVD Lungs: Clear to Auscultation Heart: Regular Rate Abdomen: Normal Bowel Sounds, Soft, No Tenderness Extremities: No Edema Neuro: Other (RT Hemipararis with bilateral footdrop) Results Lab Laboratory Tests 11/26/16 18:15: Glucometer 108 11/26/16 20:50: Glucometer 149H 11/27/16 04:38: Glucometer 106 11/27/16 05:10: Alanine Aminotransferase (ALT/SGPT) 43, Albumin 3.5, Alkaline Phosphatase 93, Anion Gap 10, Aspartate Amino Transf (AST/SGOT) 42H, BUN/Creatinine Ratio 15, Basophils # (Auto) 0.0, Basophils (%) (Auto) 0, Blood Urea Nitrogen 13, Calcium Level 9.0, Carbon Dioxide Level 24, Chloride Level 105, Creatinine 0.85, Eosinophils # (Auto) 0.2, Eosinophils (%) (Auto) 4, Estimat Glomerular Filtration Rate > 60, Glucose Level 104, Hematocrit 42, Hemoglobin 13.8, Lymphocytes # (Auto) 2.2, Lymphocytes (%) (Auto) 39, Mean Corpuscular Hemoglobin 28, Mean Corpuscular Hemoglobin Concent 33, Mean Corpuscular Volume 84, Mean Platelet Volume 10.5H, Monocytes # (Auto) 0.6, Monocytes (%) (Auto) 10 , Neutrophils # (Auto) 2.7, Neutrophils (%) (Auto) 47, Platelet Count 173, Potassium Level 4.1, Red Blood Count 4.98, Red Cell Distribution Width 12.8, Sodium Level 139, Total Bilirubin 0.4, Total Protein 6.6, White Blood Count 5.8 11/27/16 11:04: Glucometer 94 11/27/16 16:01: Glucometer 136H 11/27/16 20:14: Glucometer 159H 11/28/16 05:50: Glucometer 101 11/28/16 11:05: Glucometer 107 11/28/16 16:06: Glucometer 141H 11/28/16 20:22: Glucometer 156H 11/29/16 05:08: Glucometer 101 11/29/16 11:04: Glucometer 110 11/29/16 15:56: Glucometer 217H Assessment/Plan Assessment General debil secondary to catheter related UTI Treated Exacerbation of MS with RT HP and weakness LLE as well with bilateral footdrop has Bilateral afos-home interferon regimen resumed Late effects of stroke DM controlled HTN controlled Plan Continue Pt OT Team Conference held yesterday- See report for full functional update and POC and KELLY VIEIRA MD Nov 29, 2016 16:41
[2016-11-29] MEDS: RIVAROXABAN 20 MG TABLET (XARELTO) PO SCH (17:39)
[2016-11-29] MEDS: doxAzosin 2 MG (CARDURA) TAB PO SCH (17:39)
[2016-11-29 18:41] VITALS: BP 123/83
[2016-11-29] MEDS: inSUlin DETERMIR 1 UNIT/0.01 ML (LEVEMIR) CHARGE PER UNIT SQ SCH (20:26)
--- NOTE | 2016-11-29 21:05 | Individualized Plan of Care ---
Individualized Plan of Care Rehab Nursing IPOC Order Admission Date Nov 26, 2016 at 17:11 Current Orders Orders-KELLY PAZ MD Patient Visit (11/28/16 ) Exercise Therap, Ea 15 Min (11/28/16 ) Gait Training, Ea 15 Min (11/28/16 ) Functional Activities, Ea 15 (11/28/16 ) Patient May Use Own Med,Single (Patient (11/28/16 18:45) Patient Visit (11/29/16 ) Gait Training, Ea 15 Min (11/29/16 ) Exercise Therap, Ea 15 Min (11/29/16 ) Patient Visit (11/29/16 ) Gait Training, Ea 15 Min (11/29/16 ) PT IPOC Problem List: Activity Tolerance, Functional Strength, Safety, Balance, Gait, Transfer Treatment Plan: Continue Plan of Care Bed Mobility, Education, Functional Activity Ta, Functional Strength, Group Therapy, Gait, Safety, Therapeutic Exercise, Transfers Treatment Duration: Dec 18, 2016 Visits Per Week: 10-11 Minutes/Day (M-F): 60-90 Minutes/Day (Sat/Juares): 15-30 OT IPOC Problems: Decreased Activ Tolerance, Decreased UE Strength, Dependent Transfers , Impaired Funct Balance, Impaired Self-Care Skills, Restricted Funct UE ROM OT Problems Pt would benefit from skilled OT to increase his independence in basic self care to allow him to safely return home to live with and to decrease caregiver burden Plan of Care: ADL Retraining, Functional Mobility, Group Exercise/Act as Ind ( education, exercise, activity tolerance, functional activities) Treatment Duration: Dec 18, 2016 Visits Per Week: 10-11 Minutes/Day (M-F): 75-90 Minutes/Day (Sat/Juares): PRN ST IPOC Speech Therapy Treatment Plan: Discontinue ST (Eval, only.) Physician IPOC Medical Issues being managed closely and that require the 24 hour availability of a physician: ongoing treatment of MS with Interferon with exacerbation due to catheter related UTI ABHIJEET IDDM Medical Issues: Bowel/Bladder Function, DVT Prophylaxis, Falls Precautions, Fluid/Electrolyte/Nutrition Balance, Infection Protection, Pain Management, Other (List) (as per above) Brief Synthesis of Preadmission Screen, Post-Admission Evaluation, and Therapy Evaluations: 46 yo male with longstanding hx of MS followed by Neuro in [facility] with three times a week Interferon who had been Modified Independent at the the w/c level who had a decline in Function s/p catheter related UTI Has chronic indwelling Amezquita catheter managede by in [place] PCP [place] in [place] Patients spouse assist patient at home as neededPatient also has late effects of stroke and carries a Dx of ABHIJEET on cpap and IDDM Medical Prognosis: good Anticipated Length of Stay: 2-28-17 Rehab Goals Return to PLOF or better Anticipated discharge destinat: Home with spouse and [facility] KELLY PAZ MD Nov 29, 2016 21:05
[2016-11-30 06:00] VITALS: BP 131/87
[2016-11-30] MEDS: inSUlin (REGULAR) HUMAN 1 UNIT/0.01 ML (CHARGE PER UNIT) SC SCH ×4 (06:00→20:46)
[2016-11-30] MEDS: AMOXICILLIN 500 MG (POLYMOX) CAP PO SCH ×2 (06:11→17:43)
--- NOTE | 2016-11-30 08:25 | Progress Note (SOAP) ---
Subjective Subjective/Events-last exam multiple sclerosis. Patient states she's getting around better. Patient states he is more steady on his gait Objective Exam Vital Signs Date Time Temp Pulse Resp B/P Pulse Ox O2 Delivery O2 Flow Rate FiO2 11/30/16 06:00 96.9 65 16 131/87 97 11/29/16 21:00 94 Room Air 11/29/16 18:41 97.4 86 16 123/83 94 11/29/16 08:24 Room Air I & O 11/30/16 07:00 Intake Total 1460 ml Output Total 2175 ml Balance -715 ml Capillary Refill : General Appearance: No Apparent Distress WD/WN HEENT: Normal ENT Inspection Neck: Normal Inspection Respiratory: Chest Non Tender Lungs Clear Normal Breath Sounds No Accessory Muscle Use No Respiratory Distress Cardiovascular: Regular Rate, Rhythm No Murmur Gastrointestinal: soft Results Lab Laboratory Tests 11/29/16 11:04: Glucometer 110 11/29/16 15:56: Glucometer 217H 11/29/16 20:25: Glucometer 212H 11/30/16 06:09: Glucometer 94 Assessment/Plan Assessment/Plan Assess & Plan/Chief Complaint weakness. Multiple sclerosis. Diabetes. Hypertension. Hyperlipidemia. Catheter associated UTI. Obstructive sleep apnea. Right hemiplegia. Right foot drop. History of depression. History of right lower extremity DVT. . Weakness. Multiple sclerosis. Diabetes. Hypertension. Hyperlipidemia. UTI infection. History of obstructive sleep apnea. Patient physical therapy and does not have a steady gait yet. Patient needs more work. . . 11/29/16. Multiple sclerosis. Weakness. Unsteady gait. Diabetes. Hypertension. Hyperlipidemia. Patient has unsteady gait but able to correct himself without help. . 11/30/16. Weakness. Multiple sclerosis. Unsteady gait is improving. Diabetes. Hypertension. Hyperlipidemia Diagnosis/Problems: Clinical Quality Measures DVT/VTE Risk/Contraindication: Risk Factor Score Per Nursin RFS Level Per Nursing on Admit: 1=Low/No VTE PPX TRENT CURRIE DO Nov 30, 2016 08:25
--- NOTE | 2016-11-30 08:52 | PM & R (SOAP) Progress Note ---
Subjective Subjective/Events-last exam Patient was seen on unit this AM Patient min assist for transfers Objective Exam Last Set of Vital Signs Vital Signs Date Time Temp Pulse Resp B/P Pulse Ox O2 Delivery O2 Flow Rate FiO2 11/30/16 06:00 96.9 65 16 131/87 97 11/29/16 21:00 Room Air Capillary Refill : I&O Intake and Output 11/30/16 00:00 Intake Total 1440 ml Output Total 1950 ml Balance -510 ml Intake Oral 1380 ml Other 60 ml Output Urine Total 1950 ml General: Alert, Oriented X3, Cooperative, No Acute Distress HEENT: Atraumatic, PERRLA, EOMI, Mucous Memb Moist/[place] Neck: Supple, No JVD Lungs: Clear to Auscultation Heart: Regular Rate Abdomen: Normal Bowel Sounds, Soft, No Tenderness Extremities: No Edema Neuro: Other (RT Hemipararis with bilateral footdrop) Results Lab Laboratory Tests 11/27/16 11:04: Glucometer 94 11/27/16 16:01: Glucometer 136H 11/27/16 20:14: Glucometer 159H 11/28/16 05:50: Glucometer 101 11/28/16 11:05: Glucometer 107 11/28/16 16:06: Glucometer 141H 11/28/16 20:22: Glucometer 156H 11/29/16 05:08: Glucometer 101 11/29/16 11:04: Glucometer 110 11/29/16 15:56: Glucometer 217H 11/29/16 20:25: Glucometer 212H 11/30/16 06:09: Glucometer 94 Assessment/Plan Assessment General debil secondary to catheter related UTI Treated Exacerbation of MS with RT HP and weakness LLE as well with bilateral footdrop has Bilateral afos-home interferon regimen resumed Late effects of stroke DM controlled HTN controlled Plan Continue Pt OT Team Conference held 11-28-16- See report for full functional update and POC and KELLY VIEIRA MD Nov 30, 2016 08:52
[2016-11-30] MEDS: MODAFINIL 100 MG TAB (PROVIGIL) NON-FORMULARY PO SCH (09:00)
[2016-11-30] MEDS: VITAMIN D3 5,000 UNITS (CHOLECALCIFEROL ) CAPSULE PO SCH (09:00)
[2016-11-30] MEDS: CARVEDILOL 6.25 MG (COREG) TAB PO SCH ×2 (09:00→20:46)
[2016-11-30] MEDS: ASPIRIN 325 MG (5 GR) TABLET PO SCH (09:00)
[2016-11-30] MEDS: ATORVASTATIN 40 MG (LIPITOR) TABLET PO SCH (09:00)
--- NOTE | 2016-11-30 10:47 | Physical Therapy Daily Note ---
PT Daily Note-Current Subjective Pt was sitting in recliner upon arrival. Pt reports no pain and feeling less tired than yesterday afternoon. Pt agrees to PT. Pain Numeric Pain Scale: 0-No Pain Location: No Pain Reported Mental Status Patient Orientation: Person, Place, Time, Situation Attachments: PEG Tube, Amezquita Catheter Transfers Functional [place] Measure 0=Not Assessed/NA 4=Minimal Assistance 1=Total Assistance 5=Supervision or Setup 2=Maximal Assistance 6=Modified [place] 3=Moderate Assistance 7=Complete IndependenceIRFPAI Quality Coding Scale 6 Independent with activity with or without an assistive device 5 Patient requires set up or clean up by helper. Patient completes activity by themselves 4 Supervision or touching assist ([facility]). [place] provide cues , steadying assist 3 The helper provides less than half the effort to complete the activity 2 The helper provides more than half the effort to complete the activity 1 Dependent. The helper does all the effort to complete an activity 7 Patient refused to complete or attempt activity 9 The patient did not perform the activity before the current illness or injury 88 Not attempted due to Medical conditions or safety concerns Scootin Sit to/from Stand: 5 Sit to Stand (QC): 5 Pt transfers at A to start tx but by the end of tx pt transfers at [facility] due to fatigue. Weight Bearing Weight Bearing Restriction: Full Weight Bearing Location Restriction: LE Bilateral Gait Training Does the Patient Walk?: Yes Distance (FIM): 3=150 ft Distance: 250' Walk 10 feet (QC): 4 Walk 50 ft with 2 Turns(QC): 4 Walk 150 ft (QC): 4 Gait Level of Assist: 4 Gait Persons Needed: 1 Gait Assistive Device: Cane Large Base Quad Pt has weakness with DF of feet especially with R foot so pt circumducts R hip. Pt walks with slow jarad but no LOB this morning. Exercises Standing: Mini squats, Sit to Stand Standing Reps: 10 Treatments Pt transfers from recliner to standing using Quad cane at [facility]. Pt ambulates in Therapy Commons using Quad cane at [facility]. Pt ambulates to Therapy Gym then transfers to NuStep at [facility]. Pt uses NuStep for 15m at Workload 6 to start then asked for 7 for the last 5mins. Pt then transfers to chair at [facility] for short rest. Pt completes mini squats at //bars at [facility] then takes short rest. Pt then practices sit to stands from chair using Quad cane at SBA to start then CGA by end. Pt then transfers to standing using Quad cane and ambulates in hallway to table in Commons area to await OT. Pt is left with all needs met at end of tx and OT arriving. Assessment Current Status: Good Progress Pt continues to make progress with independence in transfers and mobility. Pt still has weakness in R side and unable to DF while ambulating to normalize gait. Pt is motivated and works hard. PT Short Term Goals Short Term Goals Time Frame: Dec 04, 2016 Gait (FIM): 4 Gait Distance Comment: 200' Gait Level of Assist: 4 Gait Assistive Device: Cane Large Base Quad PT Emr Trainer Goals Emr Trainer Goals PT Emr Trainer Goals Time Frame: Dec 18, 2016 Transfers (B,C,W/C) (FIM): 6 Sit to Lying (QC): 6 Lying-Sitting on Side/Bed(QC): 6 Sit to Stand (QC): 6 Rollin Roll Left to Right (QC): 6 Chair/Ruv-ut-Ljpgz Xfer(QC): 6 Car Transfer (QC): 4 Does the Patient Walk: Yes Gait (FIM): 5 Distance: 250' Walk 10 feet (QC): 4 Walk 10ft-Uneven Surface(QC): 4 Walk 50ft with 2 Turns (QC): 4 Walk 150 ft (QC): 4 Gait Level of Assist: 5 Gait Assistive Device: Cane Large Base Quad Does the Pt use WC or Scooter?: No Stairs (FIM): 2 # of Steps: 4 1 Step (curb) (QC): 4 4 Steps (QC): 4 12 Steps (QC): 88 Stairs Level Of Assist: 4 Picking up an Object (QC): 88 PT Plan Problem List Problem List: Activity Tolerance, Functional Strength, Safety, Balance, Gait Treatment/Plan Treatment Plan: Continue Plan of Care Treatment Plan: Bed Mobility, Education, Functional Activity Ta, Functional Strength, Group Therapy, Gait, Safety, Therapeutic Exercise, Transfers Treatment Duration: Dec 18, 2016 Visits Per Week: 10-11 Minutes/Day (M-F): 60-90 Minutes/Day (Sat/Juares): 15-30 Safety Risks/Education Patient Education: Gait Training, Transfer Techniques, Correct Positioning, Safety Issues Teaching Recipient: Patient Teaching Methods: Discussion Response to Teaching: Verbalize Understanding Time/GCodes Time In: 915 Time Out: 1000 Total Billed Treatment Time: 45 Total Billed Treatment visit, GT (15m) & EX X2 (30m) CHELLY DOMINGUEZ SKI PATROL Nov 30, 2016 10:47
--- NOTE | 2016-11-30 11:59 | Physical Therapy Daily Note ---
PT Daily Note-Current Subjective Pt sitting in recliner after jsut returning from tx with OT. Pt reports a little fatigue but not too bad. Pt agrees to finish morning tx with PT. Pain Numeric Pain Scale: 0-No Pain Location: No Pain Reported Mental Status Patient Orientation: Person, Place, Time, Situation Attachments: PEG Tube, Amezquita Catheter Transfers Functional [place] Measure 0=Not Assessed/NA 4=Minimal Assistance 1=Total Assistance 5=Supervision or Setup 2=Maximal Assistance 6=Modified [place] 3=Moderate Assistance 7=Complete IndependenceIRFPAI Quality Coding Scale 6 Independent with activity with or without an assistive device 5 Patient requires set up or clean up by helper. Patient completes activity by themselves 4 Supervision or touching assist (CGA). [place] provide cues , steadying assist 3 The helper provides less than half the effort to complete the activity 2 The helper provides more than half the effort to complete the activity 1 Dependent. The helper does all the effort to complete an activity 7 Patient refused to complete or attempt activity 9 The patient did not perform the activity before the current illness or injury 88 Not attempted due to Medical conditions or safety concerns Scootin Sit to/from Stand: 5 Sit to Stand (QC): 5 Weight Bearing Weight Bearing Restriction: Full Weight Bearing Location Restriction: LE Bilateral Gait Training Does the Patient Walk?: Yes Distance (FIM): 1=up to 49 ft Distance: 50' Walk 10 feet (QC): 4 Walk 50 ft with 2 Turns(QC): 4 Gait Level of Assist: 4 Gait Persons Needed: 1 Gait Assistive Device: Cane Large Base Quad Pt walks from recliner in room to Therapy Commons for Group Lunch. Exercises Seated Therapy Exercises: Ankle pumps, Long arc quads, Hip flexion Seated Reps: 15 Treatments Pt completed seated EX to rest a little before ambulating to group. Pt transferred from sit to stand at recliner using Quad Cane at SBA. Pt ambulated using Quad Cane at [facility]. Pt was left at table in Commons for Group Lunch with all needs met at end of tx. Assessment Current Status: Good Progress Pt continues to make progress with independence with transfers and mobility. PT Short Term Goals Short Term Goals Time Frame: Dec 04, 2016 Gait (FIM): 4 Gait Distance Comment: 200' Gait Level of Assist: 4 Gait Assistive Device: Cane Large Base Quad PT Bookkeeping Teacher Goals Fpc Goals PT Bookkeeping Teacher Goals Time Frame: Dec 18, 2016 Transfers (B,C,W/C) (FIM): 6 Sit to Lying (QC): 6 Lying-Sitting on Side/Bed(QC): 6 Sit to Stand (QC): 6 Rollin Roll Left to Right (QC): 6 Chair/Sev-rp-Hxmpo Xfer(QC): 6 Car Transfer (QC): 4 Does the Patient Walk: Yes Gait (FIM): 5 Distance: 250' Walk 10 feet (QC): 4 Walk 10ft-Uneven Surface(QC): 4 Walk 50ft with 2 Turns (QC): 4 Walk 150 ft (QC): 4 Gait Level of Assist: 5 Gait Assistive Device: Cane Large Base Quad Does the Pt use WC or Scooter?: No Stairs (FIM): 2 # of Steps: 4 1 Step (curb) (QC): 4 4 Steps (QC): 4 12 Steps (QC): 88 Stairs Level Of Assist: 4 Picking up an Object (QC): 88 PT Plan Problem List Problem List: Functional Strength, Balance, Gait Treatment/Plan Treatment Plan: Continue Plan of Care Treatment Plan: Bed Mobility, Education, Functional Activity Ta, Functional Strength, Group Therapy, Gait, Safety, Therapeutic Exercise, Transfers Treatment Duration: Dec 18, 2016 Visits Per Week: 10-11 Minutes/Day (M-F): 60-90 Minutes/Day (Sat/Juares): 15-30 Safety Risks/Education Patient Education: Gait Training, Transfer Techniques, Correct Positioning, Safety Issues Teaching Recipient: Patient Teaching Methods: Discussion Response to Teaching: Verbalize Understanding Time/GCodes Time In: 1120 Time Out: 1145 Total Billed Treatment Time: 25 Total Billed Treatment visit, EX (15m) & GT (10m) CHELLY DOMINGUEZ PTA Nov 30, 2016 11:59
--- NOTE | 2016-11-30 14:15 | Therapy Group Daily Note ---
Therapy Daily Group Note Patient Education Topic Home Safety, Fall Prevention Exercises Fine Motor, UE Exercise Other/Notes Pt ambulated with min A using quadcane to OT/PT lunch group in [facility]. Group therapy consisted of introductions, socialization, fine motor skills, UE gross motor skills, memory recall of different restaurants were favorites and kitchen/home safety and AE in kitchen. Pt actively participated in group and contributed to discussions around the table appropriately. Pt was able to open/close container and packages with assist for one bottle. Pt ambulated with CGA using quadcane to room then laid down in bed. Call light/ phone in reach. All needs met in room. Start Time: 12:00 Stop Time: 13:10 Total Billed Treatment Time: 70 Total Billed Treatment 1-GRP CLARITZA PHILIPPE Nov 30, 2016 14:14
--- NOTE | 2016-11-30 14:32 | Occupational Ther Daily Note ---
OT Current Status-Daily Note Subjective Pt seen in [facility] area, agreeable to OT. No pain mentioned. Mental Status/Objective Functional [place] Measure 0=Not Assessed/NA 4=Minimal Assistance 1=Total Assistance 5=Supervision or Setup 2=Maximal Assistance 6=Modified [place] 3=Moderate Assistance 7=Complete [place] Attachments: PEG Tube ADL-Treatment Functional [place] Measure 0=Not Assessed/NA 4=Minimal Assistance 1=Total Assistance 5=Supervision or Setup 2=Maximal Assistance 6=Modified [place] 3=Moderate Assistance 7=Complete IndependenceIRFPAI Quality Coding Scale 6 Independent with activity with or without an assistive device 5 Patient requires set up or clean up by helper. Patient completes activity by themselves 4 Supervision or touching assist (CGA). [place] provide cues , steadying assist 3 The helper provides less than half the effort to complete the activity 2 The helper provides more than half the effort to complete the activity 1 Dependent. The helper does all the effort to complete an activity 7 Patient refused to complete or attempt activity 9 The patient did not perform the activity before the current illness or injury 88 Not attempted due to Medical conditions or safety concerns Grooming (FIM): 6 (Once at the sink, seated at chair, pt was able to brush his teeth, wash face and hands and shave. Took longer than usual) Upper Body (FIM): 5 (Took shirt off and put it back on when shaving.) Toileting (FIM): 5 (Close SBA to manage clothing in standing. Encouraged to not lean head against wall for balance and was able to get pants up and down safely. BSC over toilet, grab bars. He does not empty watts bag here but does at home) Toilet/Commode Transfer (FIM): 4 (Min assist, BSC ove toilet, grab bars, quad cane. He tends to "plop" down and needs several trials to get up (depending in part on feet placement)) Other Treatment Pt walked min to CGA assist, quad cane to bathroom (approx 60 feet), losing balance but self correcting. Leans heavily to L to allow R leg to swing through. Walked abck out to commons area after ADLs and did standing activity without support x 4 reps, working on dynamic balance needed for toileting and lower body dressing. He was able to stand at least a minute each time and sat back down with more control after each trial. Pt walked back to room again (60 feet), min to CGA. Was left up in room in recliner, all needs met. Education OT Patient Education: Modified ADL techniques, Purpose of tx/functional activities, Transfer techniques Teaching Recipient: Patient Teaching Methods: Demonstration, Discussion Response to Teaching: Verbalize Understanding, Return Demonstration OT Short Term Goals Short Term Goals Time Frame: Dec 04, 2016 Bathing(FIM): 5 Toilet/Commode Transfer(FIM): 5 Shower Transfer(FIM): 5 Additional Short Term Goals: 2-Verbalize Understanding, 3-ImproveStrength/Ta 1=Demonstrate adherence to instructed precautions during ADL tasks. 2=Patient will verbalize/demonstrate understanding of assistive devices/ modifications for ADL. 3=Patient will improve strength/tolerance for activity to enable patient to perform ADL's. OT Application Technical Designer Goals Application Technical Designer Goals Time Frame: Dec 18, 2016 Eating (FIM): 6 Eating (QC): 6 Groomin Oral Hygiene (QC): 6 Bathing(FIM): 6 Shower/Bathe Self (QC): 6 Upper Body Dressing(FIM): 6 Upper Body Dressing (QC): 6 Lower Body Dressing(FIM): 6 Lower Body Dressing (QC): 6 On/Off Footwear (QC): 6 Toileting(FIM): 6 Toileting Hygiene (QC): 6 Toilet/Commode Transfer(FIM): 6 Toilet/Commode Transfer (QC): 6 Shower Transfer(FIM): 6 Additional Goals: 2-Verbalize Understanding, 3-ImproveStrength/Ta 1=Demonstrate adherence to instructed precautions during ADL tasks. 2=Patient will verbalize/demonstrate understanding of assistive devices/ modifications for ADL. 3=Patient will improve strength/tolerance for activity to enable patient to perform ADL's. OT Education/Plan Problem List/Assessment Pt would benefit from skilled OT to increase his independence in basic self care to allow him to safely return home to live with and to decrease caregiver burden Discharge Recommendations Plan/Recommendations: Continue POC Treatment Plan/Plan of Care Patient would benefit from OT for education, treatment and training to promote independence in ADL's, mobility, safety and/or upper extremity function for ADL' s. Plan of Care: ADL Retraining, Functional Mobility, Group Exercise/Act as Ind ( education, exercise, activity tolerance, functional activities) Treatment Duration: Dec 18, 2016 Visits Per Week: 10-11 Minutes/Day (M-F): 75-90 Minutes/Day (Sat/Juares): PRN Agreement: Yes Rehab Potential: Fair Time/GCodes Start Time: 10:00 Stop Time: 11:00 Total Time Billed (hr/min): 60 Billed Treatment Time visit, 30 minutes ADL, 30 minutes functional activity MAEGAN MATA OT Nov 30, 2016 14:32
[2016-11-30] MEDS: doxAzosin 2 MG (CARDURA) TAB PO SCH (17:43)
[2016-11-30] MEDS: RIVAROXABAN 20 MG TABLET (XARELTO) PO SCH (17:43)
[2016-11-30 17:55] VITALS: BP 122/82
[2016-11-30] MEDS: INTERFERON BETA 44 MCG SQ SCH (20:45)
[2016-11-30] MEDS: inSUlin DETERMIR 1 UNIT/0.01 ML (LEVEMIR) CHARGE PER UNIT SQ SCH (20:46)
[2016-12-01 05:00] VITALS: BP 125/81
[2016-12-01] MEDS: inSUlin (REGULAR) HUMAN 1 UNIT/0.01 ML (CHARGE PER UNIT) SC SCH ×3 (06:00→15:40)
[2016-12-01] MEDS: MODAFINIL 100 MG TAB (PROVIGIL) NON-FORMULARY PO SCH (06:41)
[2016-12-01] MEDS: ATORVASTATIN 40 MG (LIPITOR) TABLET PO SCH (06:41)
[2016-12-01] MEDS: AMOXICILLIN 500 MG (POLYMOX) CAP PO SCH (06:42)
[2016-12-01] MEDS: VITAMIN D3 5,000 UNITS (CHOLECALCIFEROL ) CAPSULE PO SCH (08:41)
[2016-12-01] MEDS: CARVEDILOL 6.25 MG (COREG) TAB PO SCH (08:41)
[2016-12-01] MEDS: ASPIRIN 325 MG (5 GR) TABLET PO SCH (08:41)
--- NOTE | 2016-12-01 09:09 | Physical Therapy Daily Note ---
PT Daily Note-Current Subjective Pt sitting in recliner upon arrival and had just finished breakfast. Pt agrees to PT. Pain Numeric Pain Scale: 0-No Pain Location: No Pain Reported Mental Status Patient Orientation: Person, Place, Time, Situation Attachments: PEG Tube, Amezquita Catheter Transfers Functional [place] Measure 0=Not Assessed/NA 4=Minimal Assistance 1=Total Assistance 5=Supervision or Setup 2=Maximal Assistance 6=Modified [place] 3=Moderate Assistance 7=Complete IndependenceIRFPAI Quality Coding Scale 6 Independent with activity with or without an assistive device 5 Patient requires set up or clean up by helper. Patient completes activity by themselves 4 Supervision or touching assist (CGA). [place] provide cues , steadying assist 3 The helper provides less than half the effort to complete the activity 2 The helper provides more than half the effort to complete the activity 1 Dependent. The helper does all the effort to complete an activity 7 Patient refused to complete or attempt activity 9 The patient did not perform the activity before the current illness or injury 88 Not attempted due to Medical conditions or safety concerns Transfers (B, C, W/C) (FIM): 5 Scootin Sit to/from Stand: 5 Sit to Stand (QC): 5 Weight Bearing Weight Bearing Restriction: Full Weight Bearing Location Restriction: LE Bilateral Gait Training Does the Patient Walk?: Yes Gait (FIM): 4 Distance (FIM): 3=150 ft Distance: 150 + 150= 300' Walk 10 feet (QC): 4 Walk 50 ft with 2 Turns(QC): 4 Walk 150 ft (QC): 4 Gait Level of Assist: 4 Gait Persons Needed: 1 Gait Assistive Device: Cane Large Base Quad Pt is a little stiff to start out this morning but works itself out with walking. Pt has slow jarad but is improving with more knee flexion and less hip circumduction. Exercises Standing: Mini squats, Weight shifts Standing Reps: 20 Treatments Pt transfers from recliner to standing using Quad cane at SBA. Pt then ambulates in hallway using Quad cane at CGA for approx. 150' before needing to rest. Pt then ambulates to Therapy Gym and transfers to chair to rest. Pt then completes 5 sit stands using Quad cane at SBA. Pt then uses //bars for standing EX before ambulating back to room to rest. Pt transfers back to recliner at SBA with feet up to rest with all needs met at end of tx. Assessment Current Status: Good Progress Pt is improving with independence of transfers and gait. Pt's is normalizing as getting stronger with less R hip circumduction and more R knee flexion. Pt is motivated to get better and go home. PT Short Term Goals Short Term Goals Time Frame: Dec 04, 2016 Gait (FIM): 4 Gait Distance Comment: 200' Gait Level of Assist: 4 Gait Assistive Device: Cane Large Base Quad PT Lab Courier Goals Senior Care Goals PT Lab Courier Goals Time Frame: Dec 18, 2016 Transfers (B,C,W/C) (FIM): 6 Sit to Lying (QC): 6 Lying-Sitting on Side/Bed(QC): 6 Sit to Stand (QC): 6 Rollin Roll Left to Right (QC): 6 Chair/Pza-fm-Xxuvc Xfer(QC): 6 Car Transfer (QC): 4 Does the Patient Walk: Yes Gait (FIM): 5 Distance: 250' Walk 10 feet (QC): 4 Walk 10ft-Uneven Surface(QC): 4 Walk 50ft with 2 Turns (QC): 4 Walk 150 ft (QC): 4 Gait Level of Assist: 5 Gait Assistive Device: Cane Large Base Quad Does the Pt use WC or Scooter?: No Stairs (FIM): 2 # of Steps: 4 1 Step (curb) (QC): 4 4 Steps (QC): 4 12 Steps (QC): 88 Stairs Level Of Assist: 4 Picking up an Object (QC): 88 PT Plan Problem List Problem List: Activity Tolerance, Functional Strength, Safety, Balance, Gait Treatment/Plan Treatment Plan: Continue Plan of Care Treatment Plan: Bed Mobility, Education, Functional Activity Ta, Functional Strength, Group Therapy, Gait, Safety, Therapeutic Exercise, Transfers Treatment Duration: Dec 18, 2016 Visits Per Week: 10-11 Minutes/Day (M-F): 60-90 Minutes/Day (Sat/Juares): 15-30 Safety Risks/Education Patient Education: Gait Training, Transfer Techniques, Correct Positioning, Safety Issues Teaching Recipient: Patient Teaching Methods: Discussion Response to Teaching: Verbalize Understanding Time/GCodes Time In: 740 Time Out: 815 Total Billed Treatment Time: 35 Total Billed Treatment visit, GT (20m) & EX (15m) CHELLY DOMINGUEZ PTA Dec 01, 2016 09:09
--- NOTE | 2016-12-01 11:17 | Occupational Ther Daily Note ---
OT Current Status-Daily Note Subjective No pain reported. Appearance Pt. is up in chair. Declines showering but agrees to spongebathe. Mental Status/Objective Patient Orientation: Person, Place, Time, Situation Functional [place] Measure 0=Not Assessed/NA 4=Minimal Assistance 1=Total Assistance 5=Supervision or Setup 2=Maximal Assistance 6=Modified [place] 3=Moderate Assistance 7=Complete [place] ADL-Treatment Functional [place] Measure 0=Not Assessed/NA 4=Minimal Assistance 1=Total Assistance 5=Supervision or Setup 2=Maximal Assistance 6=Modified [place] 3=Moderate Assistance 7=Complete IndependenceIRFPAI Quality Coding Scale 6 Independent with activity with or without an assistive device 5 Patient requires set up or clean up by helper. Patient completes activity by themselves 4 Supervision or touching assist (CGA). [place] provide cues , steadying assist 3 The helper provides less than half the effort to complete the activity 2 The helper provides more than half the effort to complete the activity 1 Dependent. The helper does all the effort to complete an activity 7 Patient refused to complete or attempt activity 9 The patient did not perform the activity before the current illness or injury 88 Not attempted due to Medical conditions or safety concerns Grooming (FIM): 5 Oral Hygiene (QC): 5 Bathing (FIM): 5 Shower/Bathe Self (QC): 5 Upper Body (FIM): 5 Upper Body Dressing (QC): 5 Lower Body Dressing (FIM): 5 Lower Body Dressing (QC): 5 On/Off Footwear (QC): 5 Transfers (B, C, W/C) (FIM): 5 Toilet/Commode Transfer (FIM): 5 Toilet Transfer (QC): 4 Other Treatment Pt. able to fully undress, bathe, and then re-dress with set up today. After ADLs at chair side, ambulated with SBA to bathroom. Required supervision to transfer to toilet. Pt. requested to sit there awhile. OT informed him to pull light for nursing when done. Education OT Patient Education: Modified ADL techniques, Progress toward Goal/Update tx plan, Purpose of tx/functional activities, Reviewed precautions, Rehab process, Transfer techniques Teaching Recipient: Patient Teaching Methods: Demonstration, Discussion Response to Teaching: Verbalize Understanding, Return Demonstration OT Short Term Goals Short Term Goals Time Frame: Dec 04, 2016 Bathing(FIM): 5 Toilet/Commode Transfer(FIM): 5 Shower Transfer(FIM): 5 Additional Short Term Goals: 2-Verbalize Understanding, 3-ImproveStrength/Ta 1=Demonstrate adherence to instructed precautions during ADL tasks. 2=Patient will verbalize/demonstrate understanding of assistive devices/ modifications for ADL. 3=Patient will improve strength/tolerance for activity to enable patient to perform ADL's. 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 2=Patient will verbalize/demonstrate understanding of assistive devices/ modifications for ADL. 3=Patient will improve strength/tolerance for activity to enable patient to perform ADL's. OT Education/Plan Problem List/Assessment Assessment: Decreased Activ Tolerance, Impaired I ADL's, Impaired Self-Care Skills Pt would benefit from skilled OT to increase his independence in basic self care to allow him to safely return home to live with and to decrease caregiver burden Discharge Recommendations Plan/Recommendations: Continue POC Therapy D/C Recommendations: Home w/ Family Support, Occupational Therapy Home Care Treatment Plan/Plan of Care Treatment,Training & Education: Yes Patient would benefit from OT for education, treatment and training to promote independence in ADL's, mobility, safety and/or upper extremity function for ADL' s. Plan of Care: ADL Retraining, Functional Mobility, Group Exercise/Act as Ind ( education, exercise, activity tolerance, functional activities) Treatment Duration: Dec 18, 2016 Visits Per Week: 10-11 Minutes/Day (M-F): 75-90 Minutes/Day (Sat/Juares): PRN Agreement: Yes Rehab Potential: Fair Time/GCodes Start Time: 09:00 Stop Time: 09:30 Total Time Billed (hr/min): 30 Billed Treatment Time 1, ADL x 2 REMIGIO POLO OT Dec 01, 2016 11:17
[2016-12-01] MEDS: RIVAROXABAN 20 MG TABLET (XARELTO) PO SCH (23:59)
[2016-12-01] MEDS: inSUlin DETERMIR 1 UNIT/0.01 ML (LEVEMIR) CHARGE PER UNIT SQ SCH (23:59)
[2016-12-02] MEDS: inSUlin (REGULAR) HUMAN 1 UNIT/0.01 ML (CHARGE PER UNIT) SC SCH ×5 (00:01→21:00)
[2016-12-02 05:16] VITALS: BP 143/90
[2016-12-02] MEDS: ATORVASTATIN 40 MG (LIPITOR) TABLET PO SCH (06:30)
[2016-12-02] MEDS: MODAFINIL 100 MG TAB (PROVIGIL) NON-FORMULARY PO SCH (06:31)
[2016-12-02] MEDS: ASPIRIN 325 MG (5 GR) TABLET PO SCH (09:25)
[2016-12-02] MEDS: CARVEDILOL 6.25 MG (COREG) TAB PO SCH ×3 (09:26→21:10)
[2016-12-02] MEDS: VITAMIN D3 5,000 UNITS (CHOLECALCIFEROL ) CAPSULE PO SCH (09:26)
[2016-12-02 17:25] VITALS: BP 119/80
[2016-12-02] MEDS: RIVAROXABAN 20 MG TABLET (XARELTO) PO SCH (17:48)
[2016-12-02] MEDS: doxAzosin 2 MG (CARDURA) TAB PO SCH ×2 (17:48)
[2016-12-02] MEDS: inSUlin DETERMIR 1 UNIT/0.01 ML (LEVEMIR) CHARGE PER UNIT SQ SCH (21:10)
[2016-12-03 06:00] VITALS: BP 125/76
[2016-12-03] MEDS: inSUlin (REGULAR) HUMAN 1 UNIT/0.01 ML (CHARGE PER UNIT) SC SCH ×4 (06:30→21:13)
[2016-12-03] MEDS: VITAMIN D3 5,000 UNITS (CHOLECALCIFEROL ) CAPSULE PO SCH (08:47)
[2016-12-03] MEDS: CARVEDILOL 6.25 MG (COREG) TAB PO SCH ×2 (08:47→21:12)
[2016-12-03] MEDS: ATORVASTATIN 40 MG (LIPITOR) TABLET PO SCH (08:47)
[2016-12-03] MEDS: ASPIRIN 325 MG (5 GR) TABLET PO SCH (08:47)
[2016-12-03] MEDS: MODAFINIL 100 MG TAB (PROVIGIL) NON-FORMULARY PO SCH (08:49)
--- NOTE | 2016-12-03 08:49 | Progress Note (SOAP) ---
Subjective Subjective/Events-last exam multiple sclerosis. Patient feeling better. Patient feels his gait is better. Patient feels he is getting around better Objective Exam Vital Signs Date Time Temp Pulse Resp B/P Pulse Ox O2 Delivery O2 Flow Rate FiO2 12/03/16 06:00 97.8 77 18 125/76 96 Room Air 12/02/16 21:00 Room Air 12/02/16 17:25 97.0 87 20 119/80 97 Room Air I & O 12/03/16 07:00 Intake Total 1040 ml Output Total 2625 ml Balance -1585 ml Capillary Refill : General Appearance: No Apparent Distress WD/WN HEENT: Normal ENT Inspection Neck: Normal Inspection Respiratory: Chest Non Tender Lungs Clear Normal Breath Sounds No Accessory Muscle Use No Respiratory Distress Cardiovascular: Regular Rate, Rhythm No Murmur Gastrointestinal: non tender Results Lab Laboratory Tests 12/02/16 11:25: Glucometer 168H 12/02/16 16:16: Glucometer 148H 12/02/16 21:09: Glucometer 176H 12/03/16 06:42: Glucometer 143H Assessment/Plan Assessment/Plan Assess & Plan/Chief Complaint weakness. Multiple sclerosis. Diabetes. Hypertension. Hyperlipidemia. Catheter associated UTI. Obstructive sleep apnea. Right hemiplegia. Right foot drop. History of depression. History of right lower extremity DVT. . Weakness. Multiple sclerosis. Diabetes. Hypertension. Hyperlipidemia. UTI infection. History of obstructive sleep apnea. Patient physical therapy and does not have a steady gait yet. Patient needs more work. . . 11/29/16. Multiple sclerosis. Weakness. Unsteady gait. Diabetes. Hypertension. Hyperlipidemia. Patient has unsteady gait but able to correct himself without help. . 11/30/16. Weakness. Multiple sclerosis. Unsteady gait is improving. Diabetes. Hypertension. Hyperlipidemia. . 12/03/16. Weakness improving. Multiple sclerosis. Diabetes. Hypertension. Hyperlipidemia. Patient feels sees 85 percent better Diagnosis/Problems: Clinical Quality Measures DVT/VTE Risk/Contraindication: Risk Factor Score Per Nursin RFS Level Per Nursing on Admit: 1=Low/No VTE PPX TRENT CURRIE DO Dec 03, 2016 08:49
--- NOTE | 2016-12-03 10:59 | Occupational Ther Daily Note ---
OT Current Status-Daily Note Subjective Pt seen in room, up in recliner, agreeable to OT. Pt reported he thought he was close to prior functional status for self care. Appearance Alert, cooperative Mental Status/Objective Functional [place] Measure 0=Not Assessed/NA 4=Minimal Assistance 1=Total Assistance 5=Supervision or Setup 2=Maximal Assistance 6=Modified [place] 3=Moderate Assistance 7=Complete [place] Attachments: PEG Tube ADL-Treatment All ADLs take longer than usual, due to being done with 1 hand, careful and deliberate gait and standing Functional [place] Measure 0=Not Assessed/NA 4=Minimal Assistance 1=Total Assistance 5=Supervision or Setup 2=Maximal Assistance 6=Modified [place] 3=Moderate Assistance 7=Complete IndependenceIRFPAI Quality Coding Scale 6 Independent with activity with or without an assistive device 5 Patient requires set up or clean up by helper. Patient completes activity by themselves 4 Supervision or touching assist (CGA). [place] provide cues , steadying assist 3 The helper provides less than half the effort to complete the activity 2 The helper provides more than half the effort to complete the activity 1 Dependent. The helper does all the effort to complete an activity 7 Patient refused to complete or attempt activity 9 The patient did not perform the activity before the current illness or injury 88 Not attempted due to Medical conditions or safety concerns Grooming (FIM): 6 (brushed teeth, shaved at sink, seated. Hair is short so it doesn't need combing. Washed face and hands in shower.) Bathing (FIM): 5 (setup. Washed and dried all parts. Stood to wash bottom, balancing with head on the wall while L hand washed and dried. Shower bench, grab bars, hand held shower) Upper Body (FIM): 5 (Undressed and then redressed, putting same clothes back on. ) Lower Body Dressing (FIM): 5 (Undressed and then redressed with same clothes, setup to retrieve depends. Able to thread watts bag through Depends and pants, don socks, put braces and shoes on. balanced to pull pants up by resting head against wall. ) Transfers (B, C, W/C) (FIM): 5 (Requires several attempts, pushes back against chair when standing so may need chair stabilized before getting up. Walked to bathroom with close SBA, quad cane) Shower Transfer(FIM): 5 (SBA, shower bench, grab bar, quad cane) Other Treatment Pt walked close SBA, quad cane to commons area (about 60 feet). Pt stood unsupported x 2 trials of 2 min and 2 min 25 seconds for standing as needed for ADLs. First trial with 1x LOB but corrected, second time without LOB. Pt needed chair stabilization to stand, several attempts. Pt educ to lean over further and he was able to get up easier. pt walked abck to room close SB, quad cane, moving slowly and deliberately. Pt left up in recliner, all needs met. Education OT Patient Education: Progress toward Goal/Update tx plan, Transfer techniques Teaching Recipient: Patient Teaching Methods: Discussion Response to Teaching: Return Demonstration, Reinforcement Needed OT Short Term Goals Short Term Goals Time Frame: Dec 04, 2016 Bathing(FIM): 5 Toilet/Commode Transfer(FIM): 5 Shower Transfer(FIM): 5 Additional Short Term Goals: 2-Verbalize Understanding, 3-ImproveStrength/Ta 1=Demonstrate adherence to instructed precautions during ADL tasks. 2=Patient will verbalize/demonstrate understanding of assistive devices/ modifications for ADL. 3=Patient will improve strength/tolerance for activity to enable patient to perform ADL's. OT [employer] Internship Goals [employer] Internship Goals Time Frame: Dec 18, 2016 Eating (FIM): 6 Eating (QC): 6 Groomin Oral Hygiene (QC): 6 Bathing(FIM): 6 Shower/Bathe Self (QC): 6 Upper Body Dressing(FIM): 6 Upper Body Dressing (QC): 6 Lower Body Dressing(FIM): 6 Lower Body Dressing (QC): 6 On/Off Footwear (QC): 6 Toileting(FIM): 6 Toileting Hygiene (QC): 6 Toilet/Commode Transfer(FIM): 6 Toilet/Commode Transfer (QC): 6 Shower Transfer(FIM): 6 Additional Goals: 2-Verbalize Understanding, 3-ImproveStrength/Ta 1=Demonstrate adherence to instructed precautions during ADL tasks. 2=Patient will verbalize/demonstrate understanding of assistive devices/ modifications for ADL. 3=Patient will improve strength/tolerance for activity to enable patient to perform ADL's. OT Education/Plan Problem List/Assessment Pt would benefit from skilled OT to increase his independence in basic self care to allow him to safely return home to live with and to decrease caregiver burden Discharge Recommendations Plan/Recommendations: Continue POC Treatment Plan/Plan of Care Patient would benefit from OT for education, treatment and training to promote independence in ADL's, mobility, safety and/or upper extremity function for ADL' s. Plan of Care: ADL Retraining, Functional Mobility, Group Exercise/Act as Ind ( education, exercise, activity tolerance, functional activities) Treatment Duration: Dec 18, 2016 Visits Per Week: 10-11 Minutes/Day (M-F): 75-90 Minutes/Day (Sat/Juares): PRN Agreement: Yes Rehab Potential: Fair Time/GCodes Start Time: 08:30 Stop Time: 10:00 Total Time Billed (hr/min): 90 Billed Treatment Time visit, 65 minutes ADL, 25 minutes functional activity MAEGAN MATA OT Dec 03, 2016 10:59
--- NOTE | 2016-12-03 12:28 | Physical Therapy Daily Note ---
PT Daily Note-Current Subjective Pt sitting in recliner upon arrival but reports needing to use the restroom before tx. Pt also reports feeling good and agrees to PT. Pain Numeric Pain Scale: 0-No Pain Location: No Pain Reported Mental Status Patient Orientation: Person, Place, Time, Situation Attachments: PEG Tube, Amezquita Catheter, Other-See Comments (Bilat. AFO) Transfers Functional [place] Measure 0=Not Assessed/NA 4=Minimal Assistance 1=Total Assistance 5=Supervision or Setup 2=Maximal Assistance 6=Modified [place] 3=Moderate Assistance 7=Complete IndependenceIRFPAI Quality Coding Scale 6 Independent with activity with or without an assistive device 5 Patient requires set up or clean up by helper. Patient completes activity by themselves 4 Supervision or touching assist (CGA). [place] provide cues , steadying assist 3 The helper provides less than half the effort to complete the activity 2 The helper provides more than half the effort to complete the activity 1 Dependent. The helper does all the effort to complete an activity 7 Patient refused to complete or attempt activity 9 The patient did not perform the activity before the current illness or injury 88 Not attempted due to Medical conditions or safety concerns Transfers (B, C, W/C) (FIM): 5 Scootin Sit to/from Stand: 5 Sit to Stand (QC): 5 Weight Bearing Weight Bearing Restriction: Full Weight Bearing Location Restriction: LE Bilateral Gait Training Does the Patient Walk?: Yes Gait (FIM): 4 Distance (FIM): 3=150 ft Distance: 200 + 150 = 350' Walk 10 feet (QC): 5 Walk 50 ft with 2 Turns(QC): 4 Walk 150 ft (QC): 4 Gait Level of Assist: 4 Gait Persons Needed: 1 Gait Assistive Device: Cane Large Base Quad Pt is improving with less R hip circumduction and able to flex R knee more for more normalized gait. Pt still has difficulty with DF of R foot. Pt's jarad is still but is improving as well as pt's activity tolerance with ambulation before needing to rest. Exercises Seated Therapy Exercises: Ankle pumps, Long arc quads, Hip flexion, Kicking activity Seated Reps: 15 Standing: Mini squats, Sit to Stand, Unilateral stance, Weight shifts Standing Reps: 10 Treatments Pt transfers from recliner to standing using Quad Cane at [facility]. Pt ambulated to restroom to use before walk. After finished, pt ambulated in hallway using Quad Cane at [facility]. Pt transferred to chair in Therapy Gym to rest. Pt then completed seated EX before short rest and transferring to standing at //bars for standing EX. Pt then took short rest because nurse was present for Blood Sugar check. Nurse reports sugar was 74. Pt didn't report feeling bad although Blood Sugar was pretty low for pt's normal. Pt then transferred to standing to ambulate back to room. Pt ambulated using Quad Cane at [facility]. Pt trasnferred back to recliner in room for rest with feet up. Pt ordered lunch before PT left and had all needs met at end of tx. Assessment Current Status: Good Progress Pt increased activity tolerance with ambulation by increasing distance ambulated before rest. Pt is more independent with transfers and ambulation. PT Short Term Goals Short Term Goals Time Frame: Dec 04, 2016 Gait (FIM): 4 Gait Distance Comment: 200' Gait Level of Assist: 4 Gait Assistive Device: Cane Large Base Quad PT Intermediate Goals Weatherization Director Goals PT Intermediate Goals Time Frame: Dec 18, 2016 Transfers (B,C,W/C) (FIM): 6 Sit to Lying (QC): 6 Lying-Sitting on Side/Bed(QC): 6 Sit to Stand (QC): 6 Rollin Roll Left to Right (QC): 6 Chair/Lym-mm-Wztrm Xfer(QC): 6 Car Transfer (QC): 4 Does the Patient Walk: Yes Gait (FIM): 5 Distance: 250' Walk 10 feet (QC): 4 Walk 10ft-Uneven Surface(QC): 4 Walk 50ft with 2 Turns (QC): 4 Walk 150 ft (QC): 4 Gait Level of Assist: 5 Gait Assistive Device: Cane Large Base Quad Does the Pt use WC or Scooter?: No Stairs (FIM): 2 # of Steps: 4 1 Step (curb) (QC): 4 4 Steps (QC): 4 12 Steps (QC): 88 Stairs Level Of Assist: 4 Picking up an Object (QC): 88 PT Plan Problem List Problem List: Activity Tolerance, Balance, Gait Treatment/Plan Treatment Plan: Continue Plan of Care Treatment Plan: Bed Mobility, Education, Functional Activity Ta, Functional Strength, Group Therapy, Gait, Safety, Therapeutic Exercise, Transfers Treatment Duration: Dec 18, 2016 Visits Per Week: 10-11 Minutes/Day (M-F): 60-90 Minutes/Day (Sat/Juares): 15-30 Safety Risks/Education Patient Education: Gait Training, Correct Positioning, Disease Process, Safety Issues Teaching Recipient: Patient Teaching Methods: Discussion Response to Teaching: Verbalize Understanding Time/GCodes Time In: 1110 Time Out: 1210 Total Billed Treatment Time: 60 Total Billed Treatment visit, GT X2 (30m) & EX X2 (30m) CHELLY DOMINGUEZ PTA Dec 03, 2016 12:28
--- NOTE | 2016-12-03 14:07 | Physical Therapy Daily Note ---
PT Daily Note-Current Subjective Pt sitting in recliner with feet up asleep upon arrival. Pt reports feeling good this afternoon and agrees to PT. Pain Numeric Pain Scale: 0-No Pain Location: No Pain Reported Mental Status Patient Orientation: Person, Place, Time, Situation Attachments: PEG Tube, Amezquita Catheter, Other-See Comments (Bilat. AFO) Transfers Functional [place] Measure 0=Not Assessed/NA 4=Minimal Assistance 1=Total Assistance 5=Supervision or Setup 2=Maximal Assistance 6=Modified [place] 3=Moderate Assistance 7=Complete IndependenceIRFPAI Quality Coding Scale 6 Independent with activity with or without an assistive device 5 Patient requires set up or clean up by helper. Patient completes activity by themselves 4 Supervision or touching assist (CGA). [place] provide cues , steadying assist 3 The helper provides less than half the effort to complete the activity 2 The helper provides more than half the effort to complete the activity 1 Dependent. The helper does all the effort to complete an activity 7 Patient refused to complete or attempt activity 9 The patient did not perform the activity before the current illness or injury 88 Not attempted due to Medical conditions or safety concerns Transfers (B, C, W/C) (FIM): 5 Scootin Sit to/from Stand: 5 Sit to Stand (QC): 5 Weight Bearing Weight Bearing Restriction: Full Weight Bearing Location Restriction: LE Bilateral Gait Training Does the Patient Walk?: Yes Gait (FIM): 4 Distance (FIM): 3=150 ft Distance: 200 + 200= 400' Walk 10 feet (QC): 5 Walk 50 ft with 2 Turns(QC): 5 Walk 150 ft (QC): 5 Gait Level of Assist: 5 Gait Persons Needed: 1 Gait Assistive Device: Cane Large Base Quad Pt is now SBA but need to be close by for a couple slight stumbles but pt self corrects. Pt still circumduction on R side due to weakness of R DF. Pt's jarad continues to improve. Treatments Pt transfers from recliner to standing at SBA using Quad Cane. Pt ambulates in hallway using Quad Cane at close SBA. Pt ambulates approx. 200' before needing to rest then ambulates another 200' before returning to room to rest in recliner with feet up and all needs met at end of tx. Assessment Current Status: Good Progress Pt is improving with activity tolerance, balance and mobility. Pt works hard during tx because he wants to get better and go home. PT Short Term Goals Short Term Goals Time Frame: Dec 04, 2016 Gait (FIM): 4 Gait Distance Comment: 200' Gait Level of Assist: 4 Gait Assistive Device: Cane Large Base Quad PT Intermediate Goals Solid Fiber Paster Operator Goals PT Intermediate Goals Time Frame: Dec 18, 2016 Transfers (B,C,W/C) (FIM): 6 Sit to Lying (QC): 6 Lying-Sitting on Side/Bed(QC): 6 Sit to Stand (QC): 6 Rollin Roll Left to Right (QC): 6 Chair/Gdp-km-Cnskp Xfer(QC): 6 Car Transfer (QC): 4 Does the Patient Walk: Yes Gait (FIM): 5 Distance: 250' Walk 10 feet (QC): 4 Walk 10ft-Uneven Surface(QC): 4 Walk 50ft with 2 Turns (QC): 4 Walk 150 ft (QC): 4 Gait Level of Assist: 5 Gait Assistive Device: Cane Large Base Quad Does the Pt use WC or Scooter?: No Stairs (FIM): 2 # of Steps: 4 1 Step (curb) (QC): 4 4 Steps (QC): 4 12 Steps (QC): 88 Stairs Level Of Assist: 4 Picking up an Object (QC): 88 PT Plan Problem List Problem List: Activity Tolerance, Functional Strength, Balance, Gait Treatment/Plan Treatment Plan: Continue Plan of Care Treatment Plan: Bed Mobility, Education, Functional Activity Ta, Functional Strength, Group Therapy, Gait, Safety, Therapeutic Exercise, Transfers Treatment Duration: Dec 18, 2016 Visits Per Week: 10-11 Minutes/Day (M-F): 60-90 Minutes/Day (Sat/Juares): 15-30 Safety Risks/Education Patient Education: Gait Training, Correct Positioning, Disease Process, Safety Issues Teaching Recipient: Patient Teaching Methods: Discussion Response to Teaching: Verbalize Understanding Time/GCodes Time In: 1315 Time Out: 1345 Total Billed Treatment Time: 30 Total Billed Treatment visit, GT X2 (30m) CHELLY DOMINGUEZ PTA Dec 03, 2016 14:07
[2016-12-03] MEDS: RIVAROXABAN 20 MG TABLET (XARELTO) PO SCH (18:04)
[2016-12-03] MEDS: doxAzosin 2 MG (CARDURA) TAB PO SCH (18:05)
[2016-12-03 18:31] VITALS: BP 108/69
--- NOTE | 2016-12-03 20:09 | PM & R (SOAP) Progress Note ---
Subjective Subjective/Events-last exam Patient was seen on unit this evening Patient progressing well with therapies Patient SBA for transfers Objective Exam Last Set of Vital Signs Vital Signs Date Time Temp Pulse Resp B/P Pulse Ox O2 Delivery O2 Flow Rate FiO2 12/03/16 09:00 Room Air 12/03/16 06:00 97.8 77 18 125/76 96 Capillary Refill : I&O Intake and Output 12/03/16 00:00 Intake Total 1140 ml Output Total 2025 ml Balance -885 ml Intake Oral 1140 ml Output Urine Total 2025 ml # Bowel Movements 1 General: Alert, Oriented X3, Cooperative, No Acute Distress HEENT: Atraumatic, PERRLA, EOMI, Mucous Memb Moist/[place] Neck: Supple, No JVD Lungs: Clear to Auscultation Heart: Regular Rate Abdomen: Normal Bowel Sounds, Soft, No Tenderness Extremities: No Edema Neuro: Other (RT Hemipararis with bilateral footdrop) Other physical findings Indwelling Amezquita catheter to DD Results Lab Laboratory Tests 11/30/16 20:25: Glucometer 179H 12/01/16 05:23: Glucometer 109 12/01/16 11:14: Glucometer 93 12/01/16 15:32: Glucometer 136H 12/01/16 23:51: Glucometer 183H 12/02/16 04:51: Glucometer 122H 12/02/16 11:25: Glucometer 168H 12/02/16 16:16: Glucometer 148H 12/02/16 21:09: Glucometer 176H 12/03/16 06:42: Glucometer 143H 12/03/16 11:51: Glucometer 74 12/03/16 16:06: Glucometer 151H Assessment/Plan Assessment General debil secondary to catheter related UTI Treated Exacerbation of MS with RT HP and weakness LLE as well with bilateral footdrop has Bilateral afos-home interferon regimen resumed Late effects of stroke DM controlled HTN controlled Plan Continue PT/OT Next Team Conference 12/05/16 KELLY PAZ MD Dec 03, 2016 20:09
[2016-12-03] MEDS: inSUlin DETERMIR 1 UNIT/0.01 ML (LEVEMIR) CHARGE PER UNIT SQ SCH (21:13)
[2016-12-03] MEDS: INTERFERON BETA 44 MCG SQ SCH (21:14)
[2016-12-04 04:14] VITALS: BP 131/76
[2016-12-04] MEDS: inSUlin (REGULAR) HUMAN 1 UNIT/0.01 ML (CHARGE PER UNIT) SC SCH ×4 (05:24→20:30)
[2016-12-04] MEDS: ATORVASTATIN 40 MG (LIPITOR) TABLET PO SCH (06:35)
[2016-12-04] MEDS: MODAFINIL 100 MG TAB (PROVIGIL) NON-FORMULARY PO SCH (06:35)
[2016-12-04] MEDS: ASPIRIN 325 MG (5 GR) TABLET PO SCH (08:17)
[2016-12-04] MEDS: VITAMIN D3 5,000 UNITS (CHOLECALCIFEROL ) CAPSULE PO SCH (08:17)
[2016-12-04] MEDS: CARVEDILOL 6.25 MG (COREG) TAB PO SCH ×2 (08:17→20:29)
--- NOTE | 2016-12-04 09:01 | Progress Note (SOAP) ---
Subjective Subjective/Events-last exam multiple sclerosis. Patient 95 percent better. Patient doing good with physical therapy and occupational therapy Patient post a child doing so good Objective Exam Vital Signs Date Time Temp Pulse Resp B/P Pulse Ox O2 Delivery O2 Flow Rate FiO2 12/04/16 04:14 97.2 85 18 131/76 96 Room Air 12/03/16 21:00 Room Air 12/03/16 18:31 97.6 81 16 108/69 93 I & O 12/04/16 07:00 Intake Total 740 ml Output Total 1650 ml Balance -910 ml Capillary Refill : General Appearance: No Apparent Distress WD/WN Results Lab Laboratory Tests 12/03/16 11:51: Glucometer 74 12/03/16 16:06: Glucometer 151H 12/03/16 20:23: Glucometer 254H 12/04/16 05:21: Glucometer 93 Assessment/Plan Assessment/Plan Assess & Plan/Chief Complaint weakness. Multiple sclerosis. Diabetes. Hypertension. Hyperlipidemia. Catheter associated UTI. Obstructive sleep apnea. Right hemiplegia. Right foot drop. History of depression. History of right lower extremity DVT. . Weakness. Multiple sclerosis. Diabetes. Hypertension. Hyperlipidemia. UTI infection. History of obstructive sleep apnea. Patient physical therapy and does not have a steady gait yet. Patient needs more work. . . 11/29/16. Multiple sclerosis. Weakness. Unsteady gait. Diabetes. Hypertension. Hyperlipidemia. Patient has unsteady gait but able to correct himself without help. . 11/30/16. Weakness. Multiple sclerosis. Unsteady gait is improving. Diabetes. Hypertension. Hyperlipidemia. . 12/03/16. Weakness improving. Multiple sclerosis. Diabetes. Hypertension. Hyperlipidemia. Patient feels sees 85 percent better. . 12/04/69. Weakness. Multiple sclerosis. Diabetes. Hypertension. Recent getting along better. Patient 95 percent better.. Patient to be discharged tomorrow Diagnosis/Problems: Clinical Quality Measures DVT/VTE Risk/Contraindication: Risk Factor Score Per Nursin RFS Level Per Nursing on Admit: 1=Low/No VTE PPX TRENT CURRIE DO Dec 04, 2016 09:01
--- NOTE | 2016-12-04 09:24 | Occupational Ther Daily Note ---
OT Current Status-Daily Note Subjective Pt seen in room, agreeable to discharge to home tomorrow. He stated that he is 95% of his prior functional status. No pain mentioned Appearance Alert, cooperative Mental Status/Objective Functional [place] Measure 0=Not Assessed/NA 4=Minimal Assistance 1=Total Assistance 5=Supervision or Setup 2=Maximal Assistance 6=Modified [place] 3=Moderate Assistance 7=Complete [place] ADL-Treatment Pt stated that he got his own clothes out last night and put them on a chair by his bed. He dressed himself prior to therapy this morning without anyone present. All ADLs took longer than usual due to being done with one hand, modified techniques Functional [place] Measure 0=Not Assessed/NA 4=Minimal Assistance 1=Total Assistance 5=Supervision or Setup 2=Maximal Assistance 6=Modified [place] 3=Moderate Assistance 7=Complete IndependenceIRFPAI Quality Coding Scale 6 Independent with activity with or without an assistive device 5 Patient requires set up or clean up by helper. Patient completes activity by themselves 4 Supervision or touching assist (CGA). [place] provide cues , steadying assist 3 The helper provides less than half the effort to complete the activity 2 The helper provides more than half the effort to complete the activity 1 Dependent. The helper does all the effort to complete an activity 7 Patient refused to complete or attempt activity 9 The patient did not perform the activity before the current illness or injury 88 Not attempted due to Medical conditions or safety concerns Eating (FIM): 6 (Pt can prepare food and feed himslef. Takes longer than usual) Eating (QC): 6 Grooming (FIM): 6 (Shaved, brushed teeth seated at sink. Washed face and hands in shower. Hair is short and not combed. Longer than usual) Oral Hygiene (QC): 6 Toileting Hygiene (QC): 6 Bathing (FIM): 6 (Washed and dried all parts, seated on shower bench or standing, balancing with head on wall. Shower bench, grab bars, hand held shower. Retrieved towel from bar and turned water on/off.) Shower/Bathe Self (QC): 6 Upper Body (FIM): 6 (Doffed and donned shirt. Retrieved clothes. Longer than usual. Modified techniques) Upper Body Dressing (QC): 6 Lower Body Dressing (FIM): 6 (Doffed and donned pants, Depends, shoes and socks , braces. Longer than usual, modified techniques. Stands with quad cane and balances with head on wall.) Lower Body Dressing (QC): 6 On/Off Footwear (QC): 6 Toileting (FIM): 6 (Managed clothing and hygiene. BSC over toilet, grab bars, quad cane. Pt did not empty watts bag here but said he does it at home and also changes out to leg bag himself) Toilet/Commode Transfer (FIM): 6 (On/off BSC over toilet, with grab bar, quad cane) Toilet Transfer (QC): 6 Shower Transfer(FIM): 6 (On/off shower bench, using grab bars, quad cane) Pt needed help stabilizing chair with arms in bathroom because he pushes back on chair when coming to stand. Pt walked to bathroom and back to recliner with close SBA and with no LOB. Pt returned to recliner, all needs met. Education OT Patient Education: Progress toward Goal/Update tx plan Teaching Recipient: Patient Teaching Methods: Discussion Response to Teaching: Verbalize Understanding OT Short Term Goals Short Term Goals Time Frame: Dec 04, 2016 Bathing(FIM): 5 (met) Toilet/Commode Transfer(FIM): 5 (met) Shower Transfer(FIM): 5 (met) Additional Short Term Goals: 2-Verbalize Understanding, 3-ImproveStrength/Ta 1=Demonstrate adherence to instructed precautions during ADL tasks. 2=Patient will verbalize/demonstrate understanding of assistive devices/ modifications for ADL. 3=Patient will improve strength/tolerance for activity to enable patient to perform ADL's. OT Adult Parole Officer Goals Adult Parole Officer Goals Time Frame: Dec 18, 2016 Eating (FIM): 6 (met 12/04/16) Eating (QC): 6 (met 12/04/16) Groomin (met 12/04/16) Oral Hygiene (QC): 6 (met 12/04/16) Bathing(FIM): 6 (met 12/04/16) Shower/Bathe Self (QC): 6 (met 12/04/16) Upper Body Dressing(FIM): 6 (met 12/04/16) Upper Body Dressing (QC): 6 (met 12/04/16) Lower Body Dressing(FIM): 6 (met 12/04/16) Lower Body Dressing (QC): 6 (met 12/04/16) On/Off Footwear (QC): 6 (met 12/04/16) Toileting(FIM): 6 (met 12/04/16) Toileting Hygiene (QC): 6 (met 12/04/16) Toilet/Commode Transfer(FIM): 6 (met 12/04/16) Toilet/Commode Transfer (QC): 6 (met 12/04/16) Shower Transfer(FIM): 6 (met 12/04/16) Additional Goals: 2-Verbalize Understanding, 3-ImproveStrength/Ta 1=Demonstrate adherence to instructed precautions during ADL tasks. 2=Patient will verbalize/demonstrate understanding of assistive devices/ modifications for ADL. 3=Patient will improve strength/tolerance for activity to enable patient to perform ADL's. OT Education/Plan Problem List/Assessment Pt would benefit from skilled OT to increase his independence in basic self care to allow him to safely return home to live with and to decrease caregiver burden Discharge Recommendations Plan/Recommendations: Continue POC (anticipate DC tomorrow) Treatment Plan/Plan of Care Patient would benefit from OT for education, treatment and training to promote independence in ADL's, mobility, safety and/or upper extremity function for ADL' s. Plan of Care: ADL Retraining, Functional Mobility, Group Exercise/Act as Ind ( education, exercise, activity tolerance, functional activities) Treatment Duration: Dec 18, 2016 Visits Per Week: 10-11 Minutes/Day (M-F): 75-90 Minutes/Day (Sat/Juares): PRN Agreement: Yes Rehab Potential: Fair Time/GCodes Start Time: 08:15 Stop Time: 09:15 Total Time Billed (hr/min): 60 Billed Treatment Time visit, 60 minutes ADL MAEGAN MATA OT Dec 04, 2016 09:24
--- NOTE | 2016-12-04 13:36 | PM & R (SOAP) Progress Note ---
Subjective Subjective/Events-last exam Patient was seen on unit this AM .Patient SBA for transfers Objective Exam Last Set of Vital Signs Vital Signs Date Time Temp Pulse Resp B/P Pulse Ox O2 Delivery O2 Flow Rate FiO2 12/04/16 09:00 Room Air 12/04/16 04:14 97.2 85 18 131/76 96 Capillary Refill : I&O Intake and Output 12/04/16 00:00 Intake Total 700 ml Output Total 2050 ml Balance -1350 ml Intake Oral 700 ml Output Urine Total 2050 ml # Bowel Movements 1 General: Alert, Oriented X3, Cooperative, No Acute Distress HEENT: Atraumatic, PERRLA, EOMI, Mucous Memb Moist/[place] Neck: Supple, No JVD Lungs: Clear to Auscultation Heart: Regular Rate Abdomen: Normal Bowel Sounds, Soft, No Tenderness Extremities: No Edema Neuro: Other (RT Hemipararis with bilateral footdrop) Results Lab Laboratory Tests 12/01/16 15:32: Glucometer 136H 12/01/16 23:51: Glucometer 183H 12/02/16 04:51: Glucometer 122H 12/02/16 11:25: Glucometer 168H 12/02/16 16:16: Glucometer 148H 12/02/16 21:09: Glucometer 176H 12/03/16 06:42: Glucometer 143H 12/03/16 11:51: Glucometer 74 12/03/16 16:06: Glucometer 151H 12/03/16 20:23: Glucometer 254H 12/04/16 05:21: Glucometer 93 12/04/16 11:04: Glucometer 112H Assessment/Plan Assessment General debil secondary to catheter related UTI Treated Exacerbation of MS with RT HP and weakness LLE as well with bilateral footdrop has Bilateral afos-home interferon regimen resumed Late effects of stroke DM controlled HTN controlled Plan Continue PT/OT Discharge set tentatively for tomorrow to home with family Will confirm with KELLY GUERRERO MD Dec 04, 2016 13:36
--- NOTE | 2016-12-04 14:47 | Therapy Group Daily Note ---
Therapy Daily Group Note Patient Education Topic Other List Below (Handwashing, ARU description/expectations) Exercises Balance, Sit to/from Stand, Walking, Fine Motor, UE Exercise Other/Notes Pt ambulated to OT/PT group using quadcane. Group consisted of introductions ( name, place living, romantic valentines ideas), socialization, education on handwashing, completed handwashing at sink, fine motor tasks, inspirational words and critical word finding tasks. Pt actively participated in group by contributing to discussions and answer questions appropriately. Pt ambulated to sink to wash hands, SBA for standing at sink and washed hand by self. Pt was able to complete icing/decorating cookies with good dexterity/coordination using L hand during fine motor tasks. After group, pt lying in bed with call light/phone in reach. All needs met in room. Start Time: 13:00 Stop Time: 14:10 Total Billed Treatment Time: 70 Total Billed Treatment 1-GRP CLARITZA PHILIPPE Dec 04, 2016 14:47
--- NOTE | 2016-12-04 15:18 | Physical Therapy Daily Note ---
PT Daily Note-Current Subjective Pt sitting in chair and ready for PT. Pt denies pain. Pt says "I am going home tomorrow." Mental Status Patient Orientation: Person, Place, Situation Attachments: PEG Tube, Amezquita Catheter (B) AFO Transfers Functional [place] Measure 0=Not Assessed/NA 4=Minimal Assistance 1=Total Assistance 5=Supervision or Setup 2=Maximal Assistance 6=Modified [place] 3=Moderate Assistance 7=Complete IndependenceIRFPAI Quality Coding Scale 6 Independent with activity with or without an assistive device 5 Patient requires set up or clean up by helper. Patient completes activity by themselves 4 Supervision or touching assist (CGA). [place] provide cues , steadying assist 3 The helper provides less than half the effort to complete the activity 2 The helper provides more than half the effort to complete the activity 1 Dependent. The helper does all the effort to complete an activity 7 Patient refused to complete or attempt activity 9 The patient did not perform the activity before the current illness or injury 88 Not attempted due to Medical conditions or safety concerns Scootin Rollin Roll Left to Right (QC): 6 Supine to/from Sit: 6 Sit to/from Stand: 6 Sit to Lying (QC): 6 Sit to Stand (QC): 5 Chair/Vdq-gi-Estgq Xfer(QC): 5 Bed to/from Chair: 5 Car Transfer (QC): 4 Gait Training Does the Patient Walk?: Yes Gait (FIM): 4 Distance (FIM): 3=150 ft Distance: 2 x 200 =400ft Walk 10 feet (QC): 5 Walk 50 ft with 2 Turns(QC): 5 Walk 150 ft (QC): 5 Walking 10ft/uneven surface-QC: 88 (unsafe to attempt) Gait Assistive Device: Cane Large Base Quad Stair Training Stair Training: Handrails/: 1 handrail Stairs (FIM): 4 #of Steps: 12 Stairs: Pattern: Step to Level of Assist: 4 Balance Picking up an Object (QC): 88 Exercises Seated Therapy Exercises: Long arc quads Seated Reps: 20 NuStep Minutes: 10 NuStep Workload: 2 Treatments Pt seen for gait training, stair training, transfer training and ther ex. Ther ex included Nu-step x 10 min. Pt able to ascend/descend steps of 12 with 1 HR and CGA. Pt demonstrated ability to transfer sit <->supine mod (I). All sit - > stand transfers mod (I). Gait 2 x 200ft with QC, step to gait pattern and CGA. Pt experienced two episodes of mild unsteadiness with pt self righting. Assessment Current Status: Good Progress PT jesi treatment well. Pt back to room in bedside chair with call light and all needs met. PT Short Term Goals Short Term Goals Time Frame: Dec 04, 2016 Gait (FIM): 4 Gait Distance Comment: 200' Gait Level of Assist: 4 Gait Assistive Device: Cane Large Base Quad PT Tc Operator Goals Half-Way Goals PT Tc Operator Goals Time Frame: Dec 18, 2016 Transfers (B,C,W/C) (FIM): 6 Sit to Lying (QC): 6 Lying-Sitting on Side/Bed(QC): 6 Sit to Stand (QC): 6 Rollin Roll Left to Right (QC): 6 Chair/Cca-lr-Ojvhn Xfer(QC): 6 Car Transfer (QC): 4 Does the Patient Walk: Yes Gait (FIM): 5 Distance: 250' Walk 10 feet (QC): 4 Walk 10ft-Uneven Surface(QC): 4 Walk 50ft with 2 Turns (QC): 4 Walk 150 ft (QC): 4 Gait Level of Assist: 5 Gait Assistive Device: Cane Large Base Quad Does the Pt use WC or Scooter?: No Stairs (FIM): 2 # of Steps: 4 1 Step (curb) (QC): 4 4 Steps (QC): 4 12 Steps (QC): 88 Stairs Level Of Assist: 4 Picking up an Object (QC): 88 PT Plan Treatment/Plan Treatment Plan: Continue Plan of Care Treatment Plan: Bed Mobility, Education, Functional Activity Ta, Functional Strength, Group Therapy, Gait, Safety, Therapeutic Exercise, Transfers Treatment Duration: Dec 18, 2016 Visits Per Week: 10-11 Minutes/Day (M-F): 60-90 Minutes/Day (Sat/Juares): 15-30 Time/GCodes Time In: 915 Time Out: 1015 Total Billed Treatment Time: 60 Total Billed Treatment 1, ther ex 30 min, gait 30 min LILIANA ACOSTA CPTA Dec 04, 2016 15:18
[2016-12-04] MEDS: doxAzosin 2 MG (CARDURA) TAB PO SCH (17:18)
[2016-12-04] MEDS: RIVAROXABAN 20 MG TABLET (XARELTO) PO SCH (17:18)
[2016-12-04 18:00] VITALS: BP 137/86
[2016-12-04] MEDS: inSUlin DETERMIR 1 UNIT/0.01 ML (LEVEMIR) CHARGE PER UNIT SQ SCH (20:30)
[2016-12-05 05:45] VITALS: BP 127/77
[2016-12-05] MEDS: inSUlin (REGULAR) HUMAN 1 UNIT/0.01 ML (CHARGE PER UNIT) SC SCH ×3 (05:48→15:46)
[2016-12-05] MEDS: ATORVASTATIN 40 MG (LIPITOR) TABLET PO SCH (06:51)
[2016-12-05] MEDS: MODAFINIL 100 MG TAB (PROVIGIL) NON-FORMULARY PO SCH (06:51)
[2016-12-05] MEDS: VITAMIN D3 5,000 UNITS (CHOLECALCIFEROL ) CAPSULE PO SCH (08:00)
[2016-12-05] MEDS: CARVEDILOL 6.25 MG (COREG) TAB PO SCH (08:01)
[2016-12-05] MEDS: ASPIRIN 325 MG (5 GR) TABLET PO SCH (08:01)
--- NOTE | 2016-12-05 08:26 | PM & R (SOAP) Progress Note ---
Subjective Subjective/Events-last exam Patient was seen in his room this AM Night RN reports that patient sliiped to floor this AM during trip to bathroom onto his buttucks -No Injury sustained Discharge remains set for later today.Patient SBA for transfers Objective Exam Last Set of Vital Signs Vital Signs Date Time Temp Pulse Resp B/P Pulse Ox O2 Delivery O2 Flow Rate FiO2 12/05/16 05:45 96.7 79 18 127/77 98 Room Air Capillary Refill : I&O Intake and Output 12/05/16 00:00 Intake Total 1680 ml Output Total 2000 ml Balance -320 ml Intake Oral 1680 ml Output Urine Total 2000 ml # Bowel Movements 1 General: Alert, Oriented X3, Cooperative, No Acute Distress HEENT: Atraumatic, PERRLA, EOMI, Mucous Memb Moist/[place] Neck: Supple, No JVD Lungs: Clear to Auscultation Heart: Regular Rate Abdomen: Normal Bowel Sounds, Soft, No Tenderness Extremities: No Edema Neuro: Other (RT Hemipararis with bilateral footdrop) Results Lab Laboratory Tests 12/02/16 11:25: Glucometer 168H 12/02/16 16:16: Glucometer 148H 12/02/16 21:09: Glucometer 176H 12/03/16 06:42: Glucometer 143H 12/03/16 11:51: Glucometer 74 12/03/16 16:06: Glucometer 151H 12/03/16 20:23: Glucometer 254H 12/04/16 05:21: Glucometer 93 12/04/16 11:04: Glucometer 112H 12/04/16 15:47: Glucometer 312H 12/04/16 20:28: Glucometer 123H 12/05/16 05:37: Glucometer 123H Assessment/Plan Assessment General debil secondary to catheter related UTI Treated Exacerbation of MS with RT HP and weakness LLE as well with bilateral footdrop has Bilateral afos-home interferon regimen resumed Late effects of stroke DM controlled HTN controlled Fall to floor this AM No injury sustained Plan Discharge remains set for later today to home with spouse in [facility] with C F/U with PCP DR Archuleta in [place] and Neuro DR Manolo [place] Patient has had good return of strength in Lower extremites.Patients RUE chronically weak and Patient usess a Quad cane for ambulation KELLY PAZ MD Dec 05, 2016 08:26
--- NOTE | 2016-12-05 08:45 | Progress Note (SOAP) ---
Subjective Subjective/Events-last exam patient feeling good. Patient denies having any problems. Patient did have a fall this a.m. no problems Objective Exam Vital Signs Date Time Temp Pulse Resp B/P Pulse Ox O2 Delivery O2 Flow Rate FiO2 12/05/16 05:45 96.7 79 18 127/77 98 Room Air 12/04/16 20:00 Room Air 12/04/16 18:00 96.8 87 20 137/86 96 Room Air 12/04/16 09:00 Room Air I & O 12/05/16 07:00 Intake Total 1840 ml Output Total 2000 ml Balance -160 ml Capillary Refill : General Appearance: No Apparent Distress WD/WN Results Lab Laboratory Tests 12/04/16 11:04: Glucometer 112H 12/04/16 15:47: Glucometer 312H 12/04/16 20:28: Glucometer 123H 12/05/16 05:37: Glucometer 123H Assessment/Plan Assessment/Plan Assess & Plan/Chief Complaint weakness. Multiple sclerosis. Diabetes. Hypertension. Hyperlipidemia. Catheter associated UTI. Obstructive sleep apnea. Right hemiplegia. Right foot drop. History of depression. History of right lower extremity DVT. . Weakness. Multiple sclerosis. Diabetes. Hypertension. Hyperlipidemia. UTI infection. History of obstructive sleep apnea. Patient physical therapy and does not have a steady gait yet. Patient needs more work. . . 11/29/16. Multiple sclerosis. Weakness. Unsteady gait. Diabetes. Hypertension. Hyperlipidemia. Patient has unsteady gait but able to correct himself without help. . 11/30/16. Weakness. Multiple sclerosis. Unsteady gait is improving. Diabetes. Hypertension. Hyperlipidemia. . 12/03/16. Weakness improving. Multiple sclerosis. Diabetes. Hypertension. Hyperlipidemia. Patient feels sees 85 percent better. . 12/04/69. Weakness. Multiple sclerosis. Diabetes. Hypertension. Recent getting along better. Patient 95 percent better.. Patient to be discharged tomorrow. . 12/05/16. Multiple sclerosis. Weakness. Diabetes. Hypertension. Patient excited to go home today Diagnosis/Problems: Clinical Quality Measures DVT/VTE Risk/Contraindication: Risk Factor Score Per Nursin RFS Level Per Nursing on Admit: 1=Low/No VTE PPX TRENT CURRIE DO Dec 05, 2016 08:45
--- NOTE | 2016-12-05 14:17 | Therapy Team Discharge Summary ---
Therapy Discharge Summary Discharge Recommendations Date of Discharge Therapy D/C Recommendations: Home w/ Family Support, Occupational Therapy Home Care Physical Therapy Patient comes to rehab following weakness, UTI, and previous CVA. Upon admission patient performs bed mobility with SBA and transfers with CGA, ambulated 120' with a quad cane and bilateral AFO's with CGA, and go up and down 1 step with a quad cane with min assist. Patient has been performing bed mobility and transfer training, balance and endurance training, functional strengthening, stair training, gait training, and education. Patient has made fair progress and has met his bed mobility and stairs snf goals. Now, patient performs bed mobility with mod I, transfers with SBA, ambulates 200' with a quad cane and bilateral AFO's with SBA (including 50' with at least 2 turns of 90 degrees, but not over uneven surfaces), and can go up and down 4 steps using 1 handrail with CGA. Patient is being discharged from this facility today and will be discharged from PT at this time. PT Intermediate Goals Intermediate Goals PT Intermediate Goals Time Frame: Dec 18, 2016 Transfers (B,C,W/C) (FIM): 6 Roll Left to Right (QC): 6 Sit to Lying (QC): 6 Lying-Sitting on Side/Bed(QC): 6 Sit to Stand (QC): 6 Chair/Hnp-xs-Kahrh Xfer(QC): 6 Car Transfer (QC): 4 Does the Patient Walk: Yes Gait (FIM): 5 Distance: 250' Walk 10 feet (QC): 4 Walk 10ft-Uneven Surface(QC): 4 Walk 50ft with 2 Turns (QC): 4 Walk 150 ft (QC): 4 Gait Level of Assist: 5 Gait Assistive Device: Cane Large Base Quad Does the Pt use WC or Scooter?: No Stairs (FIM): 2 # of Steps: 4 1 Step (curb) (QC): 4 4 Steps (QC): 4 12 Steps (QC): 88 Stairs Level Of Assist: 4 Picking up an Object (QC): 88 OT Container Packer Operator Goals Intermediate Goals Time Frame: Dec 18, 2016 Eating (FIM): 6 (met 12/04/16) Eating (QC): 6 (met 12/04/16) Oral Hygiene (QC): 6 (met 12/04/16) Grooming(FIM): 6 (met 12/04/16) Bathing(FIM): 6 (met 12/04/16) Shower/Bathe Self (QC): 6 (met 12/04/16) Upper Body Dressing(FIM): 6 (met 12/04/16) Upper Body Dressing (QC): 6 (met 12/04/16) Lower Body Dressing(FIM): 6 (met 12/04/16) Lower Body Dressing (QC): 6 (met 12/04/16) On/Off Footwear (QC): 6 (met 12/04/16) Toileting(FIM): 6 (met 12/04/16) Toileting Hygiene (QC): 6 (met 12/04/16) Toilet/Commode Transfer(FIM): 6 (met 12/04/16) Toilet/Commode Transfer (QC): 6 (met 12/04/16) Shower Transfer(FIM): 6 (met 12/04/16) Additional Goals: 2-Verbalize Understanding, 3-ImproveStrength/Ta 1=Demonstrate adherence to instructed precautions during ADL tasks. 2=Patient will verbalize/demonstrate understanding of assistive devices/ modifications for ADL. 3=Patient will improve strength/tolerance for activity to enable patient to perform ADL's. MIKA MERCHANT PT Dec 05, 2016 14:17
[2016-12-05] MEDS: doxAzosin 2 MG (CARDURA) TAB PO SCH (17:09)
[2016-12-05] MEDS: RIVAROXABAN 20 MG TABLET (XARELTO) PO SCH (17:09)
[2016-12-05 18:07] VITALS: BP 132/87
[2016-12-05 18:55] VITALS: BP 132/87
--- NOTE | 2016-12-06 08:22 | Therapy Team Discharge Summary ---
Therapy Discharge Summary Discharge Recommendations Date of Discharge Dec 05, 2016 at 18:53 Therapy D/C Recommendations: Home w/ Family Support, Occupational Therapy Home Care Occupational Therapy Pt was seen for skilled OT after UTI and sepsis, requiring hospitalization. On admission he was modified indep for eating, setup for grooming, upper body dressing and CGA/min A for lower body dressing, bathing, toileting and toilet/ shower transfers. By discharge he progressed to modified independent with all basic ADLs, using quad cane, grab bars, BSC over toilet, shower bench, hand held shower although he was SBA with walking to locations to do ADLs. No additional equipment is needed for home and continued OT is not recommended. See tx plan for goals met. DC OT. PT Shelter Goals Shelter Goals PT Coding Team Lead Goals Time Frame: Dec 18, 2016 Transfers (B,C,W/C) (FIM): 6 Roll Left to Right (QC): 6 Sit to Lying (QC): 6 Lying-Sitting on Side/Bed(QC): 6 Sit to Stand (QC): 6 Chair/Rwr-bs-Unqpe Xfer(QC): 6 Car Transfer (QC): 4 Does the Patient Walk: Yes Gait (FIM): 5 Distance: 250' Walk 10 feet (QC): 4 Walk 10ft-Uneven Surface(QC): 4 Walk 50ft with 2 Turns (QC): 4 Walk 150 ft (QC): 4 Gait Level of Assist: 5 Gait Assistive Device: Cane Large Base Quad Does the Pt use WC or Scooter?: No Stairs (FIM): 2 # of Steps: 4 1 Step (curb) (QC): 4 4 Steps (QC): 4 12 Steps (QC): 88 Stairs Level Of Assist: 4 Picking up an Object (QC): 88 OT Coding Team Lead Goals Shelter Goals Time Frame: Dec 18, 2016 Eating (FIM): 6 (met 12/04/16) Eating (QC): 6 (met 12/04/16) Oral Hygiene (QC): 6 (met 12/04/16) Grooming(FIM): 6 (met 12/04/16) Bathing(FIM): 6 (met 12/04/16) Shower/Bathe Self (QC): 6 (met 12/04/16) Upper Body Dressing(FIM): 6 (met 12/04/16) Upper Body Dressing (QC): 6 (met 12/04/16) Lower Body Dressing(FIM): 6 (met 12/04/16) Lower Body Dressing (QC): 6 (met 12/04/16) On/Off Footwear (QC): 6 (met 12/04/16) Toileting(FIM): 6 (met 12/04/16) Toileting Hygiene (QC): 6 (met 12/04/16) Toilet/Commode Transfer(FIM): 6 (met 12/04/16) Toilet/Commode Transfer (QC): 6 (met 12/04/16) Shower Transfer(FIM): 6 (met 12/04/16) Additional Goals: 2-Verbalize Understanding, 3-ImproveStrength/Ta 1=Demonstrate adherence to instructed precautions during ADL tasks. 2=Patient will verbalize/demonstrate understanding of assistive devices/ modifications for ADL. 3=Patient will improve strength/tolerance for activity to enable patient to perform ADL's. MAEGAN MATA OT Dec 06, 2016 08:22
--- NOTE | 2017-01-04 11:04 | DISCHARGE SUMMARY ---
DATE OF ADMISSION: 11/26/2016 DATE OF DISCHARGE: 12/05/2016 HISTORY OF PRESENT ILLNESS: The patient is a 46-year-old male with a history of type 2 diabetes mellitus hypertension, hyperlipidemia, obstructive sleep apnea and ischemic stroke with residual right hemiparesis, as well as MS for which he receives treatment in [place]. He has an indwelling Amezquita catheter for bladder management. He developed UTI, suspected be catheter associated. This was treated on an inpatient basis at [facility] after being admitted there on 11/20 with fever. The patient was treated medically. He has stabilized but left with decline in functional independence as compared to his prior level of function. He lives with his in [place], [place]. His PCP is Irineo Archuleta DO in [place]. He was referred to Inpatient Rehabilitation Unit at [facility] so as to be closer home. 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 He has a scooter and various other DME at home. PAST MEDICAL HISTORY: 1. Essentially as per above. 2. He has had a PEG tube placed in the past but does not currently utilize it. MEDICAL COURSE: The patient was followed by Dr. Shay and Dr. Arvizu while on rehab unit. Accu-Cheks were monitored. Medication adjusted as necessary. He continued on baclofen p.r.n. for muscle spasms. He continued on Celexa, Xarelto as well, also Cardura. He was also on Lipitor and Provigil. He completed a course of Polymox antibiotic. He was afebrile during his stay. Blood pressure on 12/05 was 132/87, respirations 18, pulse 88, O2 sat 98% on room air. CBC on 11/27 showed WBC 5.8, H&H 13.8/42, platelet count 173,000. Chemistry on 11/27 showed normal electrolytes, BUN and creatinine. AST elevated at 42 and glucometer readings from 12/04 to 12/05 varied between 92 and 170 and 312. He slipped to the floor the day of discharge but no injury was sustained. REHABILITATION COURSE: He was assessed by speech therapy and found to be cognitively functional, swallow functional, speech functional and speech therapy signed off. OT notes upon admission, the patient was modified independent for eating. Set up for grooming, and upper body dressing, and contact guard to minimal assist for lower body dressing, bathing, toileting, and toilet/hour transfers. By discharge he had progressed to modified independent with all basic ADLs using a quad cane, grab bars, bedside commode over toilet, shower bench, hand-held shower. No additional equipment was recommended. PT notes upon admission, the patient performed bed mobility with standby assist and transfers with contact guard and could ambulate 120 feet with a quad cane with bilateral AFOs and contact guard assist and could go up and down one step with a quad cane with mid assist. Upon discharge, the patient is modified independent for bed mobility, standby assist for transfers and ambulate 200 feet with a quad cane and bilateral AFOs with standby assist and could go up and down 4 steps using one hand rail with contact guard assist. DISCHARGE INSTRUCTIONS: The patient will have follow-up with Dr. Irineo Archuleta as per his schedule, PCP in [place] and Dr. French neurologist at [facility] in [place], [place]. Continue current diet. The patient has elected to have outpatient therapies. The patient's PCP will provide Rx for this. DISCHARGE MEDICATIONS: 1. ASA 325 mg p.o. daily. 2. Lipitor 40 mg p.o. daily. 3. Baclofen 10 mg p.o. t.i.d. p.r.n. muscle spasms. 4. Coreg 6.25 mg p.o. b.i.d. 5. Vitamin D3 5000 units p.o. daily. 6. Cardura 1 mg p.o. evening. 7. Escitalopram 10 mg p.o. evening. 8. NovoLog Flex pen 14 and 16 units subcutaneous b.i.d. before meals. 9. Insulin glargine 12/16 unit subcutaneous at 1800 hours. 10. Continue with his interferon subcutaneous Saturday, Saturday, Saturday under the direction of his neurologist. 11. Provigil 200 mg p.o. daily. 12. Xarelto 20 mg p.o. evening. DISCHARGE DIAGNOSES: 1. Rehabilitation ambulatory dysfunction secondary to exacerbation of MS due to UTI, treated. 2. History of stroke with right hemiplegia. 3. History of stroke with bilateral foot drop. 4. Unsteady gait. 5. Diabetes mellitus controlled with medication. 6. Long-term use insulin. 7. Hypertension, controlled with medication. 8. ABHIJEET. 9. History of DVT. CONDITION AT DISCHARGE: Improved and stable. PROGNOSIS: Rehab prognosis appears good for continued improvement with outpatient therapy and return to prior level of function. Job ID: [id number] Dictated Date: 01/03/2017 18:55:04 Cloth Tester Quality Date: 01/04/2017 10:46:43/vj ANNE
== END 2016-12-05 18:53 | disposition home or self-care (01) | DRG 59 ==
PROVIDERS: ADMIT Physical Medicine & Rehabilitation; ATTEND Physical Medicine & Rehabilitation
DX: G35 Multiple sclerosis (principal); I69.351 Hemiplegia and hemiparesis following cerebral infarction affecting right dominant side; I69.398 Other sequelae of cerebral infarction; M21.371 Foot drop, right foot; M21.372 Foot drop, left foot; R26.81 Unsteadiness on feet; E11.9 Type 2 diabetes mellitus without complications; Z79.4 Long term (current) use of insulin; I10 Essential (primary) hypertension; E78.5 Hyperlipidemia, unspecified; G47.33 Obstructive sleep apnea (adult) (pediatric); Z86.718 Personal history of other venous thrombosis and embolism
CPT/HCPCS: 36415; 80053; 82962; 85025

== ENCOUNTER 2017-01-31 09:44 | Outpatient (RCR) | payer BC ==
--- OUTSIDE RECORDS SUMMARY | 2016-12-24 09:34 | XMS REPORT | Continuity of Care Document ---
Author Author [facility] Organization [facility] Address Unknown Phone Unavailable Care Team Providers Care Loom Operator Name Role Phone JAILYN (GWENDOLYN), LIZZY Henley PCP Insurance Providers Payer Name Policy Number Subscriber Name Relationship [facility] [id number] Yennifer Bradshaw 01 Problems No known problems [...] Encounters Encounter Location Date/Time Discharged Recurring Via [facility] 03/24/15 11:15am
[~2017-01-31 09:44] MED LIST: AMOX500C2 PO; ASPI325T32 PO; ATOR40TA70 PO; BACL10TA PO; CARV6.252 PO; CHOL5000 PO; DOXA1TAB PO; ESCI20TA45 PO; INSU100I14 SC; INSU300I SC; INTE44PE SC; MODA200T39 PO; RIVA20TA PO
== END 2017-01-31 14:47 | disposition home or self-care (01) ==
PROVIDERS: ATTEND Internal Medicine
DX: G35 Multiple sclerosis (principal)

== ENCOUNTER 2017-03-07 09:42 | Outpatient (RCR) | payer BC | END 2017-03-26 15:20 | disposition home or self-care (01) | PROVIDERS: ATTEND Specialist | DX: G35 Multiple sclerosis (principal); I69.351 Hemiplegia and hemiparesis following cerebral infarction affecting right dominant side ==

== ENCOUNTER 2017-09-19 09:43 | Outpatient (RCR) | payer BC | END 2017-09-19 14:55 | disposition home or self-care (01) | PROVIDERS: ATTEND Specialist | DX: G35 Multiple sclerosis (principal); Z86.73 Personal history of transient ischemic attack (TIA), and cerebral infarction without residual deficits; I10 Essential (primary) hypertension; K21.9 Gastro-esophageal reflux disease without esophagitis; E11.9 Type 2 diabetes mellitus without complications; F32.9 Major depressive disorder, single episode, unspecified ==